=== PATIENT | male | born 1940 | race Caucasian/White ===

== ENCOUNTER 2025-02-21 11:31 | Emergency (ER) | payer MEDICARE, BC, SELFPAY ==
--- OUTSIDE RECORDS SUMMARY | 2024-11-09 03:50 | XMS_ITS | Continuity of Care Document ---
Author Organization [facility] Address [address] [place] [address] Phone Care Team Providers Care Mortar Worker Name Role Phone Salas Pedersen MD Unavailable Unavailable Allergies, Adverse Reactions, Alerts Substance Reaction Status Criticality No Known Allergies Active No Inform ation Medications Medication Instructions Dosage Effective Dates (start - stop) Status Comments loperamide 2 mg capsule take 2 capsule by oral route after 1st loose stool, followed by 1 capsule after each subsequent loose stool not to exceed 16 mg/day 4 MG - Active sertraline 50 mg tablet take 1 tablet by oral route every day 50 MG - Active pantoprazole 20 mg tablet,delayed release take 2 tablet by oral route every day 40 MG - Active allopurinol 100 mg tablet take 1 tablet by oral route every day 100 MG - Active Tylenol Extra Strength 500 mg tablet take 2 tablet by oral route every 6 hours as needed 1000 MG - Active finasteride 5 mg tablet take 1 tablet by oral route every day 5 MG - Active tamsulosin 0.4 mg capsule take 1 capsule by oral route every day 1/2 hour following the same meal each day 0.4 MG - Active aspirin 81 mg tablet,delayed release take 1 tablet by oral route every day 81 MG - Active losartan 100 mg tablet take 1 tablet by oral route every day 100 MG - Active FISH OIL (unknown strength) Not Available - Active Maxitrol 3.5 mg/mL-10,000 unit/mL-0.1% eye drops,suspension instill 1 drop by ophthalmic route 3 times a day into affected eye(s) x 7 days then stop - No Longer Active Procedures Procedure Date REFRACTION OFFICE/OUTPATIENT VISIT, EST REFRACTION OFFICE/OUTPATIENT VISIT, EST OFFICE/OUTPATIENT VISIT, EST OFFICE/OUTPATIENT VISIT, EST OFFICE/OUTPATIENT VISIT, EST REFRACTION REFRACTION OFFICE/OUTPATIENT VISIT, EST EYE EXAM MEDICAL ESTABLISHED PAT 2019 OFFICE/OUTPATIENT VISIT, EST EYE EXAM MEDICAL REFRACTION OFFICE/OUTPATIENT VISIT, EST OFFICE/OUTPATIENT VISIT, EST OFFICE/OUTPATIENT VISIT, EST OFFICE/OUTPATIENT VISIT, EST REFRACTION EYE EXAM MEDICAL OFFICE/OUTPATIENT VISIT, EST OPHTHALMOSCOPY SPECIAL EYE EXAM, SUBSEQU ENT EYE EXAM MEDICAL EYE EXAM & TREATMENT MEDICAL OFFICE/OUTPATIENT VISIT, EST POSTOP FOLLOW-UP VISIT REFRACTION POSTOP FOLLOW-UP VISIT CATARACT SURGERY, COMPLEX Astigmatism-correct function IOL MASTER PC OPHTHALMIC BIOMETRY POSTOP FOLLOW-UP VISIT POSTOP FOLLOW-UP VISIT CATARACT SURGERY, COMPLEX IOL MASTER PC OPHTHALMIC BIOMETRY EYE EXAM & TREATMENT MEDICAL E-Prescribe IOL MASTER TC OPHTHALMIC BIOMETRY Advance Directives Directive Yes / No Effective Date File Name Other Directive No N/A N/A WARNING:The information contained in this section is historical and is provided for information only and does not constitute a legal document or any assurance that the information is still accurate. Please verify the information with the espinal of the legal document before using it for clinical purposes. Encounters Encounter Description Practice Location Reason(s) For Visit Diagnoses Date Provider Providers Copied on Encounter OFFICE/OUTPA TIENT VISIT, EST [facility], [address], [place], [address], [place] tel:[phone] [facility] 1 year medical f/u exam (chief complaint) Opacified capsule, bilateralBlepharitis ,right upper lidBlepharitis, left upper lidDermatochalasis, right upper lidDermatochalasis, left upper lidVitreous degeneration, bilateralPseudophaki a bilateralStrabismic amblyopia, right eyePresbyopia 5 Slava Marina. [address], [place], [place], [id number] , [place]. tel: [phone] Referring Provider: Salas Gabriel, [address], [place], [address] . tel:[phone] OFFICE/OUTPA TIENT VISIT, [facility], [address], [place], [address], [place] tel: [phone] [facility] 1 year medical f/u exam (chief complaint) Opacified capsule, bilateralPseudophaki a bilateralStrabismic amblyopia, right eyeDermatochalasis, right upper lidDermatochalasis, left upper lidEsotropiaBlephari tis,right upper lidBlepharitis, left upper lidVitreous degeneration, bilateralPresbyopia 4 Slava Marina. [address], [place], [place], [id number] , [place]. tel: [phone] Referring Provider: Salas Gabriel, [address], [place], [address] . tel:[phone] OFFICE/OUTPA TIENT VISIT, [facility], [address], [place], [address], [place] tel: [phone] [facility] 1 year medical f/u exam (chief complaint) Opacified capsule, bilateralBlepharitis ,right upper lidBlepharitis, left upper lidDermatochalasis, right upper lidDermatochalasis, left upper lidStrabismic amblyopia, right eyePseudophakia bilateralEsotropia 3 Slava Marina. [address], [place], [place], [id number] , [place]. tel: [phone] Referring Provider: Salas Gabriel, [address], [place], [address] . tel:[phone] OFFICE/OUTPA TIENT VISIT, [facility], [address], [place], [address], [place] tel: [phone] [facility] Eval. of their symptoms (chief complaint) Blepharitis,right upper lidBlepharitis, left upper lid Jul- 3 Carol Hunter. [address], [place], [address], [place]. tel: [phone] Referring Provider: Dale Cordova, [address], [place], [address]. tel:[phone] OFFICE/OUTPA TIENT VISIT, [facility], [address], [place], [address], [place] tel: [phone] [facility] 1 year medical f/u exam (chief complaint) Opacified capsule, bilateralDermatochal asis, right upper lidDermatochalasis, left upper lidStrabismic amblyopia, right eyeEsotropiaVitreous degeneration, bilateralPseudophaki a bilateralMyopia, bilateral Aug- 2 Slava Marina. [address], [place], [place], [id number] , [place]. tel: [phone] Referring Provider: Salas Gabriel, [address], [place], [address] . tel:[phone] OFFICE/OUTPA TIENT VISIT, [facility], [address], [place], [address], [place] tel: [phone] [facility] 2 year medical f/u exam (chief complaint) Opacified capsule, bilateralBlepharitis ,right upper lidBlepharitis, left upper lidVitreous degeneration, bilateralDermatochal asis, right upper lidDermatochalasis, left upper lidStrabismic amblyopia, right eyePseudophakia bilateral Aug- 1 Slava Marina. [address], [place], [place], [id number] , [place]. tel: [phone] Referring Provider: Salas Gabriel, [address], [place], [address] . tel:[phone] [facility], [address], [place], [address], [place] tel: [phone] [facility] AO Evaluation (chief complaint) Blepharitis,right upper lidBlepharitis, left upper lid Mar-2 0 Dale Bennett. [address], [place], [place], [address] , [place]. tel: [phone] Referring Provider: Donald Nino, [address], [place], [address] . tel:[phone] OFFICE/OUTPA TIENT VISIT, EST [facility], [address], [place], [address], [place] tel: [phone] [facility] Medical ck of pseudophaki a,OU (chief complaint) Opacified capsule, bilateralBlepharitis ,right upper lidBlepharitis, left upper lidDermatochalasis, right upper lidDermatochalasis, left upper lidStrabismic amblyopia, right eyePseudophakia bilateralVitreous degeneration, bilateralOphthalmopl egic migraine, not intractable Sep-0 9 Slava Marina. [address], [place], [place], [id number] , [place]. tel: [phone] Referring Provider: Salas Gabriel, [address], [place], [address] . tel:[phone] [facility], [address], [place], [address], [place] tel: [phone] [facility] PP Medical Eye Exam (chief complaint) HeadacheOpacified capsule, bilateralVitreous degeneration, bilateralBlepharitis ,right upper lidBlepharitis, left upper lidDermatochalasis, right upper lidDermatochalasis, left upper lidPseudophakia bilateral Nov- 8 Pumaura Marina. [address], [place], [place], [id number] , [place]. tel: [phone] Referring Provider: Salas Gabriel, [address], [place], [address] . tel:[phone] OFFICE/OUTPA TIENT VISIT, [facility], [address], [place], [address], [place] tel: [phone] [facility] 1 year medical f/u exam (chief complaint) Opacified capsule, bilateralVitreous degeneration, bilateralEsotropiaSt rabismic amblyopia, right eyeDermatochalasis, right upper lidDermatochalasis, left upper lidBlepharitis,right upper lidBlepharitis, left upper lidPseudophakia bilateralMyopia, bilateral 7 Pumaura Marina. [address], [place], [place], [address] , [place]. tel: [phone] Referring Provider: Salas Gabriel, [address], [place], [address] . tel:[phone] OFFICE/OUTPA TIENT VISIT, [facility], [address], [place], [address], [place] tel: [phone] [facility] Eval. of their symptoms (chief complaint)B lurry vision (chief complaint) Ophthalmoplegic migraine, not intractableOpacified capsule, bilateralPseudophaki a bilateralStrabismic amblyopia, right eyeDermatochalasis, right upper lidDermatochalasis, left upper lidEsotropiaEpiphora , bilateral 6 Pumaura Marina. [address], [place], [place], [address] , [place]. tel: [phone] Referring Provider: Salas Gabriel, [address], [place], [address] . tel:[phone] OFFICE/OUTPA TIENT VISIT, EST [facility], [address], [place], [address], [place] tel: [phone] [facility] 1 year medical f/u exam (chief complaint) Opacified capsule, bilateralPseudophaki a bilateralDermatochal asis, right upper lidDermatochalasis, left upper lidEpiphora, bilateralBlepharitis ,right upper lidBlepharitis, left upper lid Oct-0 6-201 5 Puk Salas. [address], [place], [place], [id number] , [place]. tel: [phone] Referring Provider: Salas Gabriel, [address], [place], [address] . tel:[phone] OFFICE/OUTPA TIENT VISIT, [facility], [address], [place], [address], [place] tel: [phone] [facility] Medical follow-up exam (chief complaint) Epiphora due to insufficient drainageBlepharitis, unspecifiedMyopia Oct-0 8-201 4 Puk Salas. [address], [place], [place], [id number] , [place]. tel: [phone] Referring Provider: Salas Gabriel, [address], [place], [address] . tel:[phone] [facility], [address], [place], [address], [place] tel: [phone] [facility] 1 year medical f/u exam (chief complaint)D ifficulty reading (chief complaint)E xcessive tearing (chief complaint) After-cataract, obscuring visionLens replaced by other meansStrabismic amblyopiaDermatochal asisEsotropia, unspecifiedBlepharit is, unspecifiedEpiphora due to insufficient drainage Sep-2 4-201 4 Puk Salas. [address], [place], [place], [address] , [place]. tel: [phone] Referring Provider: Salas Gabriel, [address], [place], [address] . tel:[phone] OFFICE/OUTPA TIENT VISIT, EST [facility], [address], [place], [address], [place] tel: [phone] [facility] Vitreous degenerationVitreous degeneration Apr-2 3 4 Slava Marina. [address], [place], [place], [id number] , [place]. tel: [phone] Referring Provider: Salas Gabriel, [address], [place], [address] . tel:[phone] [facility], [address], [place], [address], [place] tel: [phone] [facility] Opacified CapsulePseudophakiaD ERMATOCHALASISESOTRO AMANDEEP NOS Dec- 3 Slava Marina. [address], [place], [place], [id number] , [place]. tel: [phone] Referring Provider: Salas Gabriel, [address], [place], [address] . tel:[phone] [facility], [address], [place], [address], [place] tel: [phone] [facility] Opacified CapsulePseudophakiaS TRABISMIC AMBLYOPIABLEPHARITIS NOS Dec- 2 Slava Marina. [address], [place], [place], [address] , [place]. tel: [phone] Referring Provider: Salas Gabriel, [address], [place], [address] . tel:[phone] OFFICE/OUTPA TIENT VISIT, EST [facility], [address], [place], [address], [place] tel: [phone] [facility] PseudophakiaPseudoph akiaREGULAR ASTIGMATISMMYOPIASTR ABISMIC AMBLYOPIADERMATOCHAL ASISDERMATOCHALASISE SOTROPIA NOSOpacified CapsulePseudophakiaD ERMATOCHALASISESOTRO AMANDEEP NOSPseudophakiaESOTR OPIA NOSBLEPHARITIS NOS 1 Slava Marina. [address], [place], [place], [id number] , [place]. tel: [phone] Referring Provider: Salas Gabriel, [address], [place], [address] . tel:[phone] [facility], [address], [place], [address], [place] tel: [phone] [facility] No Information 1 Slava Marina. [address], [place], [place], [address] , [place]. tel: [phone] Referring Provider: Salas Gabriel, [address], [place], [address] . tel:[phone] [facility], [address], [place], [address], [place] tel: [phone] [facility] No Information 1 Slava Marina. [address], [place], [place], [address] , [place]. tel: [phone] Referring Provider: Salas Gabriel, [address], [place], [address] . tel:[phone] [facility], [address], [place], [address], [place] tel: [phone] [facility] No Information 1 Slava Marina. [address], [place], [place], [address] , [place]. tel: [phone] Referring Provider: Salas Gabriel, [address], [place], [address] . tel:[phone] [facility], [address], [place], [address], [place] tel: [phone] [facility] No Information 1 Slava Marina. [address], [place], [place], [address] , [place]. tel: [phone] Referring Provider: Salas Gabriel, [address], [place], [address] . tel:[phone] [facility], [address], [place], [address], [place] tel: [phone] [facility] No Information 1 Slava Marina. [address], [place], [place], [address] , [place]. tel: [phone] Referring Provider: Salas Gabriel, [address], [place], [address] . tel:[phone] [facility], [address], [place], [address], [place] tel: [phone] [facility] No Information 0 1 Slava Marina. [address], [place], [place], [address] , [place]. tel: [phone] Referring Provider: Salas Gabriel, [address], [place], [address] . tel:[phone] [facility], [address], [place], [address], [place] tel: [phone] [facility] No Information 0 1 Slava Marina. [address], [place], [place], [address] , [place]. tel: [phone] Referring Provider: Salas Gabriel, [address], [place], [address] . tel:[phone] [facility], [address], [place], [address], [place] tel: [phone] [facility] No Information Jun-3 - 1 Slava Marina. [address], [place], [place], [address] , [place]. tel: [phone] [facility], [address], [place], [address], [place] tel: [phone] [facility] No Information 1 Slava Marina. [address], [place], [place], [address] , [place]. tel: [phone] Referring Provider: Salas Gabriel, [address], [place], [address] . tel:[phone] Family History Family Member Type Diagnosis Age At Onset Father Problem No history of Macular degene ration Payers Payer name Insurance type Covered libertarian ID Authorclementea vandana(s) Medicare MB [id number] [facility] [id number] Social History Type Description Quantity Date Captured Comments Alcohol Use Details Unknown Caffeine Use Details Tobacco Use Status Current non-smoker Smoking Status Never smoker Non-Smoking Tobacco Use Details : No Details Available : No Details Available Sex Male Chief Complaint And Reason For Visit From encounter dated '11/09/2024 08:50'. 1 year medical f/u exam (chief complaint). Description: The 84 year old male presents for evaluation of 1 year medical f/u exam. Pt requests cont care for PCIOL OU, PCO OU, strabismic amblyopia OD and presbyopia. Pt c/o blurry Va OU x 1 months - pt reports corners of eyes get matted and crusty as well. Reason For Referral Reason For Referral No Information History Of Present Illness Encounter Date Complaint History Of Prese nt Illness 1 year medical f/u exam The 84 y ear old male presents for evaluation of 1 year medical f/u exam. Pt requests cont care for PCIOL OU, PCO OU, strabismic amblyopia OD and presbyopia. Pt c/o blurry Va OU x 1 months - pt reports corners of eyes get matted and crusty as well. 1 year medical f/u exam The 83 y ear old male presents for evaluation of 1 year medical f/u exam. 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 Pt requests continued care for PCIOL OU w/PCO OU, Vit Deg OU, strabismic amblyopia OD, Esotropia OD, DTC, PVD OU, Myopia and presbyopia. Pt saw Dr. Medina in July for Blepharitis. Pt says things aren't good today. He verbalizes that he thinks he has an infection, and then he says he's been having troubles with both NVA/DVA for a while. Pt says that OU have been watering and mattering in the corners of OU. He said after he saw Dr. Medina things got better but then the last couple months they've been like this. Eval. of their symptoms The 82 y ear old male presents for evaluation of Eval. of their symptoms. Pt states that he has a lot of tearing and soreness, mattery OS>OD, no FBS, no swelling of lids, no redness, itchy, no pain, started about a month ago. Pt states both near and distance va has been mildly transiently blurry OU for the past month. Pt has tried hot compress, it does help, but is not consistent. PT has hx of DTC, blepharitis, and PCIOL. Pt usually sees Dr Pedersen, STACIE 11/26/2021. 1 year medical f/u exam The 81 y ear old male presents for evaluation of 1 year medical f/u exam. Pt requests cont care for PCIOL OU, PCO OU, strabismic amblyopia OD, PVD OU and presbyopia. Mild decrease in Va OU x years, tamie near. 2 year medical f/u exam The 80 y ear old male presents for evaluation of 2 year medical f/u exam. Last seen as an add on for Blepharitis OU 07/19/19 (Dr Hunter). Last DFE 12/28/18 (Dr Pedersen). Patient request continued care for PCIOL OU, PCO OU, Strabismic amblyopia OD, Esotropia OU and presbyopia OU. Near VA has gradually gotten mildly blurry with glasses in the 1 year. Notices puzzles in the news paper are getting fuzzy and he needs more light to read the paper. Distance VA has been clear OU with glasses for the past year. Denies covid 29 symptoms. AO Evaluation The 79 year old male presents for evaluation of AO Evaluation, Dawit Hollingsworth MD for irritated OUPt went to [facility] 06/29/19 for irritation OU, eyes feel tight and tender in the corners. Was told to use Maxitrol drops BID x 5 days. Thought they were working well. Pt stopped gtts about 07/05/19 and was told to try Patanol but [facility] told him it was an Rx, they gave him an OTC gtts in the same family. Pt states was told to come here if continued. Pt feels they are still irritated. Medical ck of pseudophakia,OU Th e 78 year old male presents for evaluation of Medical ck of pseudophakia ,OU; PCO, OU; vitreous degeneration, OU; blepharitis and dermatochalasia. Pt c/o mild gradual decrease in NVA OU over the last 6 months. PP Medical Eye Exam This 77 year old male presents today for PP Medical Eye Exam for continued eye care for PCIOL:OU with PCO:OU, DTC:OU, Strabismus Amblyopia, ESO:OD, Blepharitis:OU - Wearing glasses full time paramedic. Does C/O blurry vision in both eyes for distance and near over the past year, states that he struggles reading small, fine print and focusing at images in the distance. Mentions today that he has had a constant headache for the past 10 days that is causing him to have eye strain and pressure behind both eyes. He had a Cervical Neck Fusion [place] [address] Bertrand. He's C/O left sided shoulder and neck pain that radiates to the top of his head. He does have a pending appt with Dr. White the end of November. 1 year medical f/u exam This 76 year old male presents today for a 1 year medical follow-up exam. Pt request continued care on PCIOL OU WITH PCO OU, DTC OU, STRABISMUS AMBLYOPIA /ESO OD, BLEPHARITIS OUPt aware of more struggle with reading finer print with OU, gradually getting worse over the past several years, get's new glasses, and finds no real improvement. Pt does well with dist vision OU. Rare floaters in Ou , mild on occasion. No flashing lights noted in OUBoth eyes continue to tear , using AT's RARE. Eval. of their symptoms This 75 year old male presents today for Eval. of their symptoms. Add on from last week for complete eye examination for continuing care of PC IOL's / Amblyopia OD / Epiphora OU and Presbyopia / increase in tearing OU >OS / tears down cheek / tears irritate skin around eye tamie temp side OS / sx's progressively getting worse the past few months / noticing a visual disturbance - occurs probable 3 x monthly - last approx 20 mis - its like looking thru beveled glass - starts peripherally than moves center than goes away - denies headache prior or after such episodes.decrease OS / grad on set / mod in severity / affects near va / occurs with gls on __ Blurry vision The patient also complains of Blurry vision in the OS more than OD. It started about many year(s) ago. It occurs frequently. The onset was progressive. It affects near vision. The symptom is throughout the day. The condition is moderate. The condition is described as blurry. 1 year medical f/u exam This 74 year old male presents today for a 1 year medical follow-up exam. PCIOL OU / Epiphora / Blepharitis OU. Pt c/o gradual moderate dist va decrease OS > OD for past 6 mos, has trouble seeing the score of the game on tv. Also, near va difficult ou, same for past few mos. Medical follow-up exam This 73 y ear old male presents today for a medical follow-up exam. Pt returns for 2 week check after being put on tx in both eyes for epiphora and blepharitis pt feel he has had some improvement. 1 year medical f/u exam This 73 year old male presents today for a 1 year medical follow-up exam. The patient also complains of Difficulty reading in both eyes. It started about 6 month(s) ago. It affects near vision. The condition is moderate. Difficulty reading The patient a lso complains of Difficulty reading in both eyes. It started about 6 month(s) ago. It affects near vision. The condition is moderate. Excessive tearing The patient al so complains of Excessive tearing in the OS more than OD. It started about 1 week(s) ago. It occurs constantly. The symptom is throughout the day. The condition is very bothersome. Functional Status Date Functional Assessmen t No Information Instructions Date Instruction Additional Infor mation No tx needed. 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 Instructions and use reviewed. Related to Presbyopia Defer treatment of c apsular opacification for now. Observe. 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 Reviewed techniques and instructions in detail. Discussed use of lubrication drops also.Generic Maxitrol TID OU for 1 week.Switch to Ketifen (Zaditor) Related to Blepharitis,right upper lid Continue full time paramedic g lasses for hyperopia. Discussed with parents that there is mild residual esotropia while in appropriate corrective lenses. Residual ET is small and is at or near monofixation range. Discussed options for treatment including aggressive pursuit of fusion with surgery. Parents defer surgery. Monitor closely for amblyopia and treat with patching if indicated. Discussed risks and importance of follow-up. Related to Strabismic amblyopia, right eye Glasses prescription given today. Instructions and use reviewed. Related to Presbyopia Monitor. 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 Observe. Related to Opacified capsule, bilateral Continue full time paramedic g lasses for hyperopia. Discussed with parents that there is mild residual esotropia while in appropriate corrective lenses. Residual ET is small and is at or near monofixation range. Discussed options for treatment including aggressive pursuit of fusion with surgery. Parents defer surgery. Monitor closely for amblyopia and treat with patching if indicated. Discussed risks and importance of follow-up. 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 Discussed with parents that there is mild residual esotropia while in appropriate corrective lenses. Residual ET is small and is at or near monofixation range. Discussed options for treatment including aggressive pursuit of fusion with surgery. Parents defer surgery. Monitor closely for amblyopia and treat with patching if indicated. Discussed risks and importance of follow-up. 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 Reviewed techniques and instructions in detail. Discussed use of lubrication drops also. Related to Blepharitis,right upper lid No tx needed. 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 Residual ET is small and is at or near monofixation range. Related to Esotropia No tx needed. 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 Reviewed techniques and instructions in detail. Discussed use of lubrication drops also.Generic Maxitrol TId for 10 days. Related to Blepharitis,right upper lid Defer treatment of c apsular opacification for now. Observe. 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 Instructions carefully reviewed and risks of meds discussed. Begin lid hygiene regimen. Reviewed techniques and instructions. Discussed use of lubrication drops also.maxitrol QID for 7 days Related to Blepharitis, left upper lid Glasses prescription given today. Instructions and use reviewed. 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 Observe. 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 Discussed with parents that there is mild residual esotropia while in appropriate corrective lenses. Residual ET is small and is at or near monofixation range. Discussed options for treatment including aggressive pursuit of fusion with surgery. Parents defer surgery. Monitor closely for amblyopia and treat with patching if indicated. Discussed risks and importance of follow-up. Related to Esotropia part time glasses fo r any substantial hyperopia. Monitor closely for amblyopia. Reviewed natural history. Discussed risks and importance of follow-up. 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 Emphasized decision for treatment is patient's own choice and NOT something they must do. Described procedure. Discussed procedure associated risks ranging from those which are resolvable with additional treatments or surgery, to those which have serious and permanent consequences such as decreased vision, blindness or even loss of eye. Discussed post-laser symptoms to be concerned about including flashes and floaters, redness, pain or decreasing vision. Patient seems to understand these discussions and feels that their symptoms are severe enough that they wish to proceed with a YAG capsulotomy. 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 Reviewed techniques and instructions in detail. Discussed use of lubrication drops also. Related to Blepharitis,right upper lid Reviewed symptoms of RD Related to Vitreous degeneration, bilateral No tx needed. 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 Discussed with parents that there is mild residual esotropia while in appropriate corrective lenses. Residual ET is small and is at or near monofixation range. Discussed options for treatment including aggressive pursuit of fusion with surgery. Parents defer surgery. Monitor closely for amblyopia and treat with patching if indicated. Discussed risks and importance of follow-up. 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 Reviewed techniques and instructions in detail. Discussed use of lubrication drops also.Use PF QID for 2 weeks Related to Blepharitis,right upper lid Continue to monitor. 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 Discussed with parents that there is mild residual esotropia while in appropriate corrective lenses. Residual ET is small and is at or near monofixation range. Discussed options for treatment including aggressive pursuit of fusion with surgery. Parents defer surgery. Monitor closely for amblyopia and treat with patching if indicated. Discussed risks and importance of follow-up. 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 Reviewed techniques and instructions in detail. Discussed use of lubrication drops also. Related to Blepharitis,right upper lid Defer treatment of c apsular opacification for now. Observe. 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 Reviewed techniques and instructions in detail. Discussed use of lubrication drops also. Related to Blepharitis,right upper lid No tx needed. 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 Christopher FAIRBANKS. Related to Headache Defer treatment of c apsular opacification for now. Observe. 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 Instructions and use reviewed. 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 Discussed with parents that there is mild residual esotropia while in appropriate corrective lenses. Residual ET is small and is at or near monofixation range. Discussed options for treatment including aggressive pursuit of fusion with surgery. Parents defer surgery. Monitor closely for amblyopia and treat with patching if indicated. Discussed risks and importance of follow-up. 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 Discussed with parents that there is mild residual esotropia while in appropriate corrective lenses. Residual ET is small and is at or near monofixation range. Discussed options for treatment including aggressive pursuit of fusion with surgery. Parents defer surgery. Monitor closely for amblyopia and treat with patching if indicated. Discussed risks and importance of follow-up. 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 Reviewed techniques and instructions in detail. Discussed use of lubrication drops also. Related to Blepharitis,right upper lid Monitor. 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 Discussed symptoms and elective nature of surgery. Patient will begin vision monitoring for advancing symptoms. Observe for now. 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 Discussed with parents that there is mild residual esotropia while in appropriate corrective lenses. Residual ET is small and is at or near monofixation range. Discussed options for treatment including aggressive pursuit of fusion with surgery. Parents defer surgery. Monitor closely for amblyopia and treat with patching if indicated. Discussed risks and importance of follow-up. Related to Esotropia Call regular M.D. if symptoms wo rsen. 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 Discussed symptoms and elective nature of surgery. Patient will begin vision monitoring for advancing symptoms. Observe for now. 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 Discussed with parents that there is mild residual esotropia while in appropriate corrective lenses. Residual ET is small and is at or near monofixation range. Discussed options for treatment including aggressive pursuit of fusion with surgery. Parents defer surgery. Monitor closely for amblyopia and treat with patching if indicated. Discussed risks and importance of follow-up. 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 Samantha cordova for evaluation. Would lower lid tightening help pt? Pt. will call if he decides to do this. 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 Relat ed to Dermatochalasis, right upper lid Begin lid hygiene re gimen. Reviewed techniques and instructions in detail. Discussed use of lubrication drops also. Related to Blepharitis,right upper lid Discussed the natura l history and treatment of cataracts. Discussed symptoms and elective nature of surgery. Patient will begin vision monitoring for advancing symptoms. Observe for now. 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 Reviewed techniques and instructions in detail. Discussed use of lubrication drops also. Related to Blepharitis, unspecified Glasses prescription given today. Instructions and use reviewed. Related to Myopia Pred. Acetate BID OU for 4 days, then qd for 4 days.Lid hygiene BID. Related to Epiphora due to insufficient drainage Patient education given 1) Tobradex TID for 1 week OU. 2) May need referral to plastic person. 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 Discussed with parents that there is mild residual esotropia while in appropriate corrective lenses. Residual ET small and is at or near monofixation range. Discussed options for treatment including aggressive pursuit of fusion with surgery. Parents defer surgery. Moniter closely for amblyopia and treat with patching if indicated. Discussed risks and importance of follow-up. Related to Strabismic amblyopia No tx needed. 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 Discussed with parents that there is mild residual esotropia while in appropriate corrective lenses. Residual ET small and is at or near monofixation range. Discussed options for treatment including aggressive pursuit of fusion with surgery. Parents defer surgery. Moniter closely for amblyopia and treat with patching if indicated. Discussed risks and importance of follow-up. Related to Esotropia, unspecified Begin lid hygiene re gimen. Reviewed techniques and instructions in detail. Discussed use of lubrication drops also. Related to Blepharitis, unspecified Discussed the natura l history and treatment of cataracts. Discussed symptoms and elective nature of surgery. Patient will begin vision monitoring for advancing symptoms. Observe for now. Related to After-cataract, obscuring vision Monitor. Related to Lens replaced by other means Posterior Vitreous D etachment OD -large floater. - Posterior vitreous separation. Second check. Still no heme. No retinal tears. No RD. - PVD. No associated retinal tears. No Viitreous Heme. No RD. Explained the natural history of backer up vitreous detachment as well as that of retinal tears and retinal detachment. Discussed their associated symptoms in detail. Reviewed what to expect and which symptoms to be concerned about. Discussed importance of prompt evaluation if symptoms worsen or change in character. Stressed the potentially serious nature of RD. Observe for now. Begin home monitoring for symptoms. Educational materials provided: Related to Posterior Vitreous Detachment - Follow up as needed. OPACIFIED CAPSULE OU - pc iol od07/28/10 and os toric 08/11/10 - - Mildly worse. Symptoms related to posterior capsular opacification slowly progressing. Impact on ADL's not sufficient to warrent capsulotomy presently. - No treatment indicated presently. Related to pc iol od07/28/10 and os toric 08/11/10 DERMATOCHALASIS - - Mild/Mod excess upper eyelid skin. Mild symptoms such as brow fatigue, irritation and/or restriction of upper visual field. - No treatment indicated presently. Related to DERMATOCHALASIS ESOTROPIA NOS OD - S tatus: NO signs of Progression. - No changes to current treatment. Related to ESOTROPIA NOS OPACIFIED CAPSULE OU - - Mildly worse. Symptoms related to posterior capsular opacification slowly progressing. Impact on ADL's not sufficient to warrent capsulotomy presently. - Discussed natural history and treatment of cataracts. Discussed symptoms and elective nature of surgery. Patient will begin vision monitoring for advancing symptoms. Observe for now. Educational materials provided: Related to OPACIFIED CAPSULE - Return in 1 year f or a medical exam. Related to pc iol od07/28/10 and os toric 08/11/10 pc iol od07/28/10 and os toric 08/11/10 - - Hx of cataract surgery. Well positioned PCIOL. - Discussed natural history and treatment of cataracts. Discussed symptoms and elective nature of surgery. Patient will begin vision monitoring for advancing symptoms. Observe for now. Related to pc iol od07/28/10 and os toric 08/11/10 STRABISMIC AMBLYOPIA OD -stable - No changes to current treatment. Related to STRABISMIC AMBLYOPIA BLEPHARITIS OU - - M ild/Mod blepharitis with meibomian gland dysfunction. Some Irritative symptoms. - Begin lid hygiene regimen. Reviewed techniques and instructions in detail. Discussed use of lubrication drops also. Related to BLEPHARITIS OPACIFIED CAPSULE OU Vision: vision affected. Symptoms: may improve with surgery. Status: Mild, new diagnosis. - May need Yag PC OS in future. Related to OPACIFIED CAPSULE pc iol od07/28/10 and os toric 08/11/10 Vision: vision not affected. Symptoms: will continue to monitor. Status: Stable. - Continue to monitor. Related to pc iol od07/28/10 and os toric 08/11/10 DERMATOCHALASIS Visi on: vision not threatened. Symptoms: will continue to monitor. Status: Moderate. - Continue to monitor. Related to DERMATOCHALASIS ESOTROPIA NOS OD Vis ion: vision not affected. Status: NO signs of Progression. - No changes to current treatment. Related to ESOTROPIA NOS BLEPHARITIS OU Visio n: vision affected. Status: Moderate. - Blepharitis. Begin lid hygiene regimen. Reviewed techniques and instructions in detail. Discussed use of lubrication drops also. Related to BLEPHARITIS - Return in 1 year w ivy Pedersen for Medical Exam. Related to See impression: general plan Assessments Type Assessment Date assessment Opacified capsule, bilateral Oct assessment Blepharitis,right upper lid assessment Blepharitis, left upper lid assessment Dermatochalasis, right upper lid assessment Dermatochalasis, left upper lid assessment Vitreous degeneration, bilateral assessment Pseudophakia bilateral impression pciol ou 2010 Histor y of cataract surgery. Well positioned PCIOL. assessment Strabismic amblyopia, right eye assessment Presbyopia impression Mildly worse. Sympto ms related to posterior capsular opacification slowly progressing. Impact on ADL's not sufficient to warrant capsulotomy presently. impression - Difference in bandar ured acuity or fixation preference between eyes due to strabismus, anisometropia or opacity. impression Posterior vitreous s eparation. No heme. No retinal tears. No RD. impression Mild/Mod blepharitis with meibomian gland dysfunction. Some Irritative symptoms. impression Mild/Mod excess uppe r eyelid skin. Mild symptoms such as brow fatigue, irritation and/or restriction of upper visual field. Patient Care Teams Name Effective Dates (start - stop) Status Members No Information
[2025-02-21 11:34] VITALS: BP 150/85; PULSE 60; RESP 20; TEMP 36.3; O2SAT 96; BMI 30.5
--- NOTE | 2025-02-21 11:56 | ED.GENADULT ---
HPI - General Adult General Date Seen: 02/21/25 Chief complaint: Cough Stated complaint: Cough Time Seen by Provider: 02/21/25 11:40 Source: patient Mode of arrival: ambulatory Limitations: no limitations History of Present Illness HPI narrative: Patient is an 84-year-old male presenting to the emergency department for cough and shortness of breath. States they recently returned from a trip to [facility]. Nine days ago they were on a boat tour and they state a lot of people on the tour seemed to be sick.. After that patient also began having symptoms and has been coughing up clear mucus since then. He went to a doctor and [place] and was prescribed amoxicillin and Ventolin for bronchitis. Symptoms have not been getting any better since they returned home. He has been unable to sleep due to the coughing. Also states he has been having increased shortness of breath ever since he 1st got sick. States previously he would walk around to visit the [facility] in [facility] but after he got sick he would stay back. No history of blood clots. Has not noticed any lower extremity swelling. Denies fevers, chills, chest pain, headache, diarrhea. States he has some left lower quadrant abdominal pain but it is only there when he coughs. Pain is not there when he is not coughing and is not tender to palpation he states. Does states he feels little bit lightheaded this morning with states he took NyQuil last night and he typically feels slightly lightheaded the next day after taking it. No other concerns noted Related Data Home Medications ?Medication ?Instructions ?Recorded ?Confirmed aspirin 81 mg chewable tablet 81 mg PO QDAY 07/07/24 11/24/24 atorvastatin 20 mg tablet mg PO 07/07/24 11/24/24 azithromycin 250 mg tablet mg PO 07/07/24 07/07/24 cholecalciferol (vitamin D3) 10 10 mcg PO QDAY 07/07/24 11/24/24 mcg (400 unit) capsule clobetasol 0.05 % topical cream 1 applic topical QDAY 07/07/24 11/24/24 doxycycline hyclate 100 mg capsule 100 mg PO BID 07/07/24 07/07/24 finasteride 5 mg tablet mg PO 07/07/24 07/07/24 gabapentin 300 mg capsule mg PO 07/07/24 11/24/24 loperamide 2 mg capsule 2 mg PO Q6H PRN 07/07/24 07/07/24 metoprolol tartrate 25 mg tablet 25 mg PO DAILY 07/07/24 02/21/25 metronidazole 500 mg tablet mg PO 07/07/24 07/07/24 omega 7-acd-iez-fish oil 60 mg-90 1 cap PO QDAY 07/07/24 11/24/24 mg-500 mg capsule (Fish Oil) pantoprazole 40 mg tablet,delayed 40 mg PO DAILY 07/07/24 02/21/25 release sertraline 100 mg tablet 100 mg PO DAILY 07/07/24 02/21/25 tamsulosin 0.4 mg capsule mg PO 07/07/24 11/24/24 valacyclovir 1 gram tablet 1,000 mg PO 3XD 07/07/24 07/07/24 Previous Rx's ?Medication ?Instructions ?Recorded dextromethorphan-guaifenesin 5 15 ml PO Q4-8H PRN cough #500 mL 02/21/25 mg-100 mg/5 mL oral liquid Allergies Allergy/AdvReac Type Severity Reaction Status Date / Time No Known Drug Allergies Allergy Verified 11/24/24 08:47 Review of Systems Status of ROS: Reports: 10 or more systems reviewed and unremarkable except as noted in History and below Exam Narrative: Exam Narrative: Const: Well-nourished, Well-developed, in mild distress Eyes: PERRL, no conjunctival injection, and symmetrical lids HENT: Atraumatic external nose and ears. Moist mucous membranes. Neck: Symmetric, trachea midline, No thyromegaly. CVS: RRR, No murmurs or gallops. Peripheral pulses 2+ and equal in all extremities RESP: Unlabored respiratory effort. Clear to auscultation bilaterally. GI: Nontender/Nondistended, No rebound or guarding. MSK:Extremities w/o deformity, Normal Active ROM Skin: Warm, Dry. No rashes or lesions. Neuro: Normal Muscle tone, No focal neurological deficits. Psych: Awake, Alert, & Oriented x3. Appropriate mood and affect. Const: Vital Signs, click to edit/add: Vital Signs - 24 hr 02/21/25 11:34 Temperature 97.4 F L Pulse Rate [Pulse Oximeter] 60 Respiratory Rate 20 Blood Pressure [Ri ght Upper Arm] 150/85 H Pulse Oximetry 96 Oxygen Delivery Me thod Room Air Course Vital Signs Vital signs: Initial Vital Signs Temperature 97.4 F L 02/21/25 11:34 Temperature Source Temporal Artery Scan 02/21/25 11:34 Pulse Rate 60 02/21/25 11:34 Respiratory Rate 20 02/21/25 11:34 Blood Pressure 150/85 H 02/21/25 11:34 Blood Pressure Mean 106 H 02/21/25 11:34 Blood Pressure Position Sitting 02/21/25 11:34 Pulse Oximetry 96 02/21/25 11:34 Oxygen Delivery Method Room Air 02/21/25 11:34 Vital Signs Temperature 97.4 F L 02/21/25 11:34 Pulse Rate 60 02/21/25 11:34 Respiratory Rate 20 02/21/25 11:34 Blood Pressure 150/85 H 02/21/25 11:34 Pulse Oximetry 96 02/21/25 11:34 Oxygen Delivery Method Room Air 02/21/25 11:34 Temperature 97.4 F L 02/21/25 11:34 Pulse Rate 60 02/21/25 11:34 Respiratory Rate 20 02/21/25 11:34 Blood Pressure 150/85 H 02/21/25 11:34 Pulse Oximetry 96 02/21/25 11:34 Oxygen Delivery Method Room Air 02/21/25 11:34 Medical Decision Making MDM Narrative Medical decision making narrative: Patient is an 84-year-old male presenting to the emergency department for a cough and shortness of breath. Cough fever will be bronchitis. The differential diagnosis of shortness of breath is broad and includes common etiologies such as COPD, asthma, pneumonia, viral syndrome, etc. More serious etiologies considered include PE, CHF, coronary artery disease, pneumothorax, aortic dissection, aortic aneurysm. Since he did have piece long flight to [facility] there is some concern he could have developed a blood clot or developed 1 from his viral infection. Either way I do think it is important to rule out in order a D-dimer. EKG and troponin order to the cardiac abnormalities causing his cough and shortness of breath. Will eventually do a CT scan to look for pneumonia or pneumothorax. Also ordered CBC, CMP, magnesium. Patient's lab work returned showing no acute concerning abnormalities. EKG interpreted by myself shows no concerning abnormalities. CT scan was ordered in reviewed by myself and the radiologist. Shows some postsurgical changes and a 4.5 cm aortic aneurysm. The patient is aware of both of these. No clear signs of pneumonia. He is doing well overall and will be discharged. Lab Data Labs: Lab Results 02/21/25 02/21/25 Range/Units 11:55 12:09 WBC 5.72 (4.50-11.00) K/uL RBC 4.22 L (4.30-5.90) m/uL Hgb 13.3 L (13.5-17.5) gm/dL Hct 39.8 (37.0-53.0) % MCV 94 (80-100) fL MCH 32 (26-34) pg MCHC 33 (32-36) gm/dL RDW Coeff of Melanie 14.3 (11.5-15.5) % Plt Count 118 L (140-440) K/uL Neut % (Auto) 75.1 H (42.0-72.0) % Lymph % (Auto) 11.0 L (20-44) % Richardson % (Auto) 7.3 (0.0-11.0) % Eos % (Auto) 4.4 (0.0-7.0) % Baso % (Auto) 0.3 (0.0-3.0) % Neut # (Auto) 4.30 (1.7-7.0) K/uL Lymph # (Auto) 0.60 L (0.90-2.90) K/uL Richardson # (Auto) 0.40 (0.00-0.90) K/UL Eos # (Auto) 0.25 (0.00-0.50) K/uL Baso # (Auto) 0.02 (0.00-0.30) K/uL Abs Immat Gran (auto) 0.11 (0.00-0.30) K/uL Imm/Tot Granulo (auto) 1.9 % D-Dimer Quant (PE/DVT) 0.35 (0.00-0.50) ug/ml Sodium 140 (135-149) mmol/L Potassium 4.3 (3.6-5.1) mmol/L Chloride 106 (96-114) mmol/L Carbon Dioxide 29 (20-32) mmol/L Anion Gap 5 L (7-15) mEq/L BUN 13 (7-30) mg/dL Creatinine 1.1 (0.5-1.5) mg/dL Estimated Creat Clear 55.14 Estimated GFR 67 ml/min Glucose 98 (60-115) mg/dL Calcium 8.6 (8.4-10.6) mg/dL Magnesium 1.8 (1.5-2.6) mg/dL Troponin I < 0.01 (0.01-0.04) ng/mL SARS-CoV-2 (PCR) Negative SARS-CoV-2 (Negative) Influenza Type A (PCR) Negative PCR FLU A (Negative) Influenza Type B (PCR) Negative PCR FLU B (Negative) RSV (PCR) Negative PCR RSV (Negative) Imaging Data CT scan - chest: Attestation: I have reviewed the pertinent imaging results. Radiologist's impression: 1. There are some reticular opacities and distortion that are primarily in the anterior/anterolateral periphery of right upper lobe and right middle lobe. There is some overlying irregularity and distortion in the chest wall. Favor that this is related to a prior surgical insult or trauma. 2. There are trace bilateral pleural effusions of unclear etiology. 3. There has an ascending aortic aneurysm that measures up to 4.5 cm. Please note that all CT scans at this facility use dose modulation, iterative reconstruction, and/or weight-based dosing when appropriate to reduce radiation dose to as low as reasonably achievable. Dictated by Ce Lambert MD @ 02/21/2025 1:39:40 PM ECG Data Attestation: I personally reviewed and interpreted this ECG as follows: Prior ECG tracings: not available for review Interpretation: Sinus bradycardia with the rate 55 beats per minute, normal intervals, left axis, no ST or T-wave abnormalities. Discharge Plan Discharge Clinical Impression: Cough, Bronchitis Patient Disposition: Home, Self-Care Condition: Stable Instructions: Acute Bronchitis (ED) Additional Instructions: Take the Robitussin as directed to help with your cough. This cough may take several months to fully go way. Finish the antibiotics prescribed in [place]. Recommend following up with the primary care provider. Also of note your aortic aneurysm is 4.5 cm and continue to have that monitored. Prescriptions: New dextromethorphan-guaifenesin 5-100 mg/5 mL liquid 15 ml PO Q4-8H PRN (Reason: cough) Qty: 500 0RF No Action doxycycline hyclate 100 mg capsule 100 mg PO BID valacyclovir 1 gram tablet 1,000 mg PO 3XD finasteride 5 mg tablet PO Patient Comments: [NO ORIGINAL SIG] gabapentin 300 mg capsule PO Patient Comments: [NO ORIGINAL SIG] pantoprazole 40 mg tablet,delayed release (DR/EC) 40 mg PO DAILY tamsulosin 0.4 mg capsule PO metoprolol tartrate 25 mg tablet 25 mg PO DAILY atorvastatin 20 mg tablet PO Patient Comments: [NO ORIGINAL SIG] metronidazole 500 mg tablet PO Patient Comments: [NO ORIGINAL SIG] azithromycin 250 mg tablet PO sertraline 100 mg tablet 100 mg PO DAILY loperamide 2 mg capsule 2 mg PO Q6H PRN clobetasol 0.05 % cream 1 applic topical QDAY cholecalciferol (vitamin D3) 10 mcg (400 unit) capsule 10 mcg PO QDAY omega 0-nnr-xfy-fish oil [Fish Oil] 60-90-500 mg capsule 1 cap PO QDAY aspirin 81 mg tablet,chewable 81 mg PO QDAY Follow Up/Referrals: Provider,Not a Local [Primary Care Provider, Family Practice] [facility]
--- OUTSIDE RECORDS SUMMARY | 2025-02-21 12:04 | XMS_ITS | Encounter Summary ---
Author Organization [facility] Care Address [address] [place] [address] Phone Care Team Providers Care [employer] Civil Engineer Name Role Phone Sebastien Moreland Primary Care Provider [phone] Mariela Kim Unavailable [phone] Reason for Visit * Reason Comments Medication Refill Encounter Details Date Type Department Care Team (Late Contact Info) Description 10/07/[address] [place] [phone] Sharon Myers ARNP [address] [place], [place] [id number] Social History Tobacco Use Types Packs/Day Years Used Date Smoking Tobacco: Never Smokeless Tobacco: Never Alcohol Use Standard Drinks/Week Comments Yes 1 (1 standard drink = 0.6 oz pur e alcohol) Sex and Gender Information Value Date Recorded Sex Assigned at Not on file Legal Sex Male 11:35 AM CDT Gender Identity Not on file Sexual Orientation Not on file documented as of this encounter Plan of Treatment Upcoming Encounters Date Type Department Care Team (Late Contact Info) Description 12/04/2025 12:30 PM CDT Appointment [facility] Heart and Vascular - Diagnostic Testing [address] [place] [phone] Default, Other [facility] [address] [place] [address] 12/04/2025 1:30 PM CDT Appointment [facility] Cardiothoracic Surgery - Cardiac Surgery [address] [place] [address] Clifton Fournier MD [address] [place] [address] documented as of this encounter Visit Diagnoses Diagnosis S/P MVR (mitral valve replacement) Heart valve replaced by other means documented in this encounter Additional Health Concerns Assessment Noted Time A fall risk assessment has been complete d for the patient 10/17/2020 4:03 PM CDT documented as of this encounter Care Teams [employer] Civil Engineer Relationship Specialty Start Date End Date Merly Sebastien [address] [place] [address] PCP - General Internal Medicine 09/24/20 Mariela Kim [address] [place] [address], [address] [place] [address] 09/24/20 11/30/22 documented as of this encounter
--- OUTSIDE RECORDS SUMMARY | 2025-02-21 12:04 | XMS_ITS | Clinical Summary ---
Author Organization [facility] Care Address [address] [place] [address] Phone Care Team Providers Care Forest Pathology Teacher Name Role Phone Sebastien Moreland Primary Care Provider [phone] Source Comments This disclosure is being made pursuant to the Care Everywhere program,applicable federal and state laws, and may not contain all informationavailable regarding this patient.[facility] Practices Allergies No known active allergies Medications tamsulosin 0.4 mg ER capsuleIndicati ons:benign prostatic hyperplasia Take 1 capsule (0.4 mg total) by mouth daily. Active finasteride 5 mg tabletIndicatio ns:benign prostatic hyperplasia Take 1 tablet (5 mg total) by mouth daily. Active omega-3 fatty acids-vitamin E 1,000 mg capsule Take 1 capsule (1,000 mg total) by mouth daily. Active clobetasol 0.05 % creamIndication s:plaque psoriasis Apply topically as needed. Active calcipotriene (DOVONEX) 0.005 % topical cream Apply topically 2 times daily as needed. Active pantoprazole 40 mg delayed release tablet Take 1 tablet (40 mg total) by mouth daily. Active cholecalciferol (VITAMIN D3) 50 mcg (2,000 unit) capsule Take 1 capsule (50 mcg total) by mouth daily. Active acetaminophen 500 mg tablet Take 1 tablet (500 mg total) by mouth every 6 hours as needed. Active loperamide 2 mg capsule Take 1 capsule (2 mg total) by mouth 4 times daily as needed. Active metoPROLol tartrate 25 mg tabletIndicatio ns:S/P MVR (mitral valve replacement) Take 0.5 tablets (12.5 mg total) by mouth every 12 hours. 30 tablet 11 1 Active atorvastatin (LIPITOR) 20 mg tabletIndicatio ns:S/P MVR (mitral valve replacement) TAKE 1 TABLET(20 MG) BY MOUTH DAILY 30 tablet 11 2 Active Additional Information Patient taking differently: 20 mg Oral At Bedtime, Reason: Other, Reported on 12/05/2024 gabapentin (NEURONTIN) 100 mg capsule Take 1 capsule (100 mg total) by mouth daily. 3 Active SERTraline 100 mg tablet Take 1 tablet (100 mg total) by mouth daily. 4 Active aspirin 81 mg enteric coated tablet Take 1 tablet (81 mg total) by mouth daily. Active amoxicillin (AMOXIL) 500 mg capsule Take 4 capsules (2,000 mg total) by mouth as needed. PRIOR TO DENTAL APPOINTMENTS AND/OR PROCEDURES 5 Active doxycycline hyclate (VIBRAMYCIN) 100 mg capsule Take 1 capsule (100 mg total) by mouth 2 times daily. 5 Active Active Problems Problem Noted Date Diagnosed Date S/P MVR (mitral valve repair) 10/16/2020 Overview (10/20/2020): 10/16/2020 was taken electively to the operating room and underwent mitral valve repair with a #35 mm attune ring annuloplasty and neochordal placement to the p2 area X 2 via right mini thoracotomy with Right femoral artery and vein cannulation for cardiopulmonary bypass via cutdown, Percutaneous right internal jugular vein cannulation. -Continue aspirin, statin, beta-enrique. Acute post-operative pain 10/16/2020 Overview (10/20/2020): Acute Post-op Pain Assess & treat pain using CVICU pain scale protocol Pain Control: - Scheduled Tylenol - Lidocaine 5% patch - PRN oxycodone & hydromorphone when extubated & clinically appropriate - APS consulted for EPS catheter placement - Consider Gabapentin POD 1 if clinically appropriate Neurological checks per CVICU protocol Acute on chronic diastolic (congestive) heart fa ilure 10/16/2020 Overview (10/20/2020): Chronic condition, present on admission Echo in May 2020 showed grade 2 diastolic dysfunction with EF of 64% Intra op ELAINA stable Post op required IV diuresis for evidence of volume overload per exam and CXR. Closely monitored intake and output, daily BMP with electrolyte replacement as needed Acute pulmonary insufficienc y following non-thoracic surgery 10/16/2020 Overview (10/20/2020): Acute Post-operative Pulmonary Insufficiency Date noted:10/16/20 2/2 postoperative atelectasis & surgical intubation CXR on admission : Stable cardiomediastinal silhouette, low lung volumes. Mild bibasilar atelectasis with possible small bilateral pleural effusions ABG on admission: pH 7.27, PCO2 55, PO2 90, bicarbonate 25 Continuous pulse oximetry Incentive spirometry Wean FiO2 to maintain SpO2 > 92 Albuterol PRN for wheezing Daily CXR & PRN ABG Severe mitral regurgitation 09/26/2020 Prostate cancer 09/26/2020 Parathyroid tumor 09/26/2020 Psoriasis 09/26/2020 Gout 09/26/2020 History of kidney stones 09/26/2020 Osteoarthritis 09/26/2020 Peripheral neuropathy 09/26/2020 IBS (irritable bowel syndrome) 09/26/2020 GERD (gastroesophageal reflux disease) Fishing hook foreign body 10/03/2012 Encounters Date Type Department Care Team Description 12/05/2024 2:30 PM CDT Office Visit [facility] - Cardiothoracic Surgery - Cardiac Surgery [address] [place] [phone] Clifton Fournier MD 12/05/2024 12:57 PM CDT - 12/05/2024 11:59 PM CDT Hospital Encounter [facility] - Heart and Vascular - Diagnostic Testing [address] [place] [address] Default, Other Stephen-Fredy Houston MD 12/05/2024 Travel from Last 3 Months Immunizations Immunization Administration Dates Next Due COVID-19, mRNA 12+ yo (PFIZE R) 30mcg/0.3mL 02/11/2021,02/11/2021,07/07/2020,2020,06/09/2020 COVID-19, mRNA, BIVALENT 12+ yo (PFIZER) 30mcg/0.3mL 03/23/2022 COVID-19, mRNA, PF 30mcg/0.3 mL (COMIRNATY) 08/08/2024 COVID-19, mRNA, PF 50mcg/0.5 mL (SPIKEVAX) 06/22/2023,06/22/2023 Influenza, PF 02/03/2021 Influenza, Quadrivalent Adjuvanted PF ,02/20/2022,04/14/2020,2019 Influenza, high dose 02/25/2023,03/12/20 19,03/12/2019,2018,02/24/2018,02/01/2017,02/01/2017 Influenza, high dose quadrivalent 12/30/2020,10/2020 Influenza, quadrivalent 05/10/2016,05/10/2016 Influenza, quadrivalent PF 02/24/2018 Influenza, unspecified 01/28/2011,01/28/2011 Pneumococcal Conjugate, PCV1 3 (Prevnar 13) 06/06/2015,06/06/2015 Pneumococcal Polysaccharide, PPSV23 (Pneumovax 23) 05/17/2011,05/16/2007,05/16/2007 Td, adult unspecified 06/05/2002,06/05/2002 Tdap 01/24/2023,10/03/2012 Zoster, live (Zostavax) 08/23/2011,08/23/2011 Social History Tobacco Use Types Packs/Day Years Used Date Smoking Tobacco: Never Smokeless Tobacco: Never Alcohol Use Standard Drinks/Week Comments Yes 1 (1 standard drink = 0.6 oz pur e alcohol) PHQ-2 Answer Date Recorded Total score/PHQ-2 0 12/05/2024 Abuse Risk Answer Date Recorded Are you in an UNsafe relationship? Not on file 07/03/2023 Does your partner/boyfriend or girlfriend hit, kick, hurt, or threaten you? Not on file 07/03/2023 Have you suffered any injury as a result of abuse in the past year? Not on file 07/03/2023 Does your partner/boyfriend or girlfriend ever try to control you by threatening you or your family? Not on file 024 Are you currently being forc ed to engage in sexual activity? Not on file 07/03/2023 Are you being abused or thre atened in your work or home environment? Not on file 07/03/2023 Are you being forced to work? Not on file Is the patient a d ependent adult ? Does not apply 07/03/2023 Do you feel unsafe at home? Not on file 06/23 Has anyone tried to force yo u to sign papers or to use your money against your will? Not on file 07/03/2023 Sex and Gender Information Value Date Recorded Sex Assigned at Not on file Legal Sex Male 11:35 AM CDT Gender Identity Not on file Sexual Orientation Not on file Last Filed Vital Signs Vital Sign Reading Time Taken Comments Blood Pressure 131/78 12/05/2024 2:08 PM CDT Pulse 64 12/05/2024 2:08 PM CDT Temperature 36.4 C (97.5 F) 12/05/2024 2:08 PM CDT Respiratory Rate 16 11/30/2023 9:49 AM CDT Oxygen Saturation 96% 12/05/2024 2:08 PM CDT Inhaled Oxygen Concentration - - Weight 101.5 kg (223 lb 12.8 oz) 12/05/2024 2:08 PM CDT Height 182 cm (5' 11.65) 12/05/2024 2:08 PM CDT Body Mass Index 30.65 12/05/2024 2:08 PM CDT Plan of Treatment Upcoming Encounters Date Type Department Care Team (Late st Contact Info) Description 12/04/2025 12:30 PM CDT Appointment [facility] - Heart and Vascular - Diagnostic Testing [address] [place] [address] Default, Other [facility] [address] [place] [address] 12/04/2025 1:30 PM CDT Appointment [facility] - Cardiothoracic Surgery - Cardiac Surgery [address] [place] [phone] Clifton Fournier MD [address] [place] [address] Health Maintenance Due Date Last Done Comments Annual Physical Visit 1943 Zoster Vaccine (2 of 3) 10/18/2011 08/23/2011, 08/22 RSV Vaccine (1 - 1-dose 75+ series) 2017 [id number] Vaccine ( season) 2024 08/08/2024, 06/22/2023, 06/22/2023, Additional history exists Influenza Vaccine: Seasonal (#1) 12/24/2024 02/25/2023, 02/25/2023, 02/20/2022, Additional history exists Tetanus Diphtheria Pertussis (3 - Td or Tdap) 01/24/2033 01/24/2023, 10/03/2012, 06/05/2002, Additional history exists Pneumococcal Vaccine Completed 06/06/2015, 06/06/2015, 05/17/2011, Additional history exists Medical Devices Implanted Type Area Hazmat Tanker Driver Device Identifier Shelf Expiration Date Model / Serial / Lot Ring Annuloplasty Attune Flexible Adjustable 35sz - [id number] Implanted:Qty: 1 on 10/16/2020 by Clifton Fournier MD at [facility] N/A: Heart [employer] [id number] 11/09/2022 [id number] / [id number] / Description:Mitral valve Procedures Procedure Name Priority Date/Time Associated Diagnosis Comments TRANSTHORACIC ECHO (TTE) COMPLETE W/ COLOR AND PW/CW Routine 12/05/2024 2:10 PM CDT H/O mitral valve repair Ascending aortic aneurysm from Last 3 Months Results * TRANSTHORACIC ECHO (TTE) COMPLETE W/ COLOR AND PW/CW (12/05/2024 2:10 PM CDT) Interpretation Summary s/p Mitral valve repair The mitral valve mean gradient = 3 mmHg No mitral regurgitation by color or spectral Doppler. Normal left ventricular size. Normal left ventricular systolic function. The Sinus of Valsalva measures 3.9cm The ascending aorta is dilated The ascending aorta measures 4.7cm Normal right ventricular systolic function. LV Ejection Fraction = 67% (based on Biplane Method of Discs). [facility] Patient Height 180.7909557467119 7 cm [facility] Patient Weight 102.06 kg [facility] Systolic Pressure (mmHg) 144 mmHg [facility] Diastolic Pressure (mmHg) 78 mmHg [facility] BSA (meters^2) 2.22 m^2 [facility] Aorta and Pulmonary Artery (Ao, PA) The Sinus of Valsalva measures 3.9cm The ascending aorta measures 4.7cm The ascending aorta is dilated [facility] Aortic Valve (AoV) Mildly calcified aortic valve leaflets. Trileaflet Aortic valve. Mild aortic insufficiency by color and spectral Doppler. No hemodynamically significant valvular aortic stenosis by doppler [facility] Inferior Vena Cava (IVC) / Pulmonary Veins A normal IVC diameter which collapses greater than 50% would support an normal RA pressure of 3 mmHg (range 0-5mmHg). [facility] Left and Right Atria (LA, RA) Normal LA chamber size. Normal right atrial size. [facility] Left Ventricle (LV) Normal left ventricular size. Left ventricular hypertrophy. Normal left ventricular systolic function. LV Ejection Fraction = 67% (based on Biplane Method of Discs). [facility] Mitral Valve (MV) The mitral valve mean gradient = 3 mmHg No mitral regurgitation by color or spectral Doppler. [facility] Procedures Complete 2D with Doppler, Color Flow and image documentation ([id number]) [facility] Pulmonic Valve (PV) The pulmonic valve leaflets are poorly seen. Trace pulmonic regurgitation by color and spectral Doppler. [facility] Right Ventricle (RV) Normal right ventricular systolic function. [facility] Technical Comments Echo image quality: marginal [facility] Tricuspid Valve (TV) Visualization of the TV is poor. Trace tricuspid regurgitation by color and spectral Doppler. [facility] IVSd 1.47 cm [facility] LVIDd 5.7 cm [facility] LVIDs 3.14 cm [facility] LVPWd 1.34 cm [facility] IVS/LVPW 1.1 [facility] FS 44.88 % [facility] LV mass(C)d 360.23 grams [facility] LV mass(C)dI 162.47 grams/m ^2 [facility] LA dimension 4.22 cm [facility] asc Aorta Diam 4.66 cm [facility] LVOT diam 2.25 cm [facility] LVOT area 3.97 cm^2 [facility] LVAd ap4 38.7 cm^2 [facility] LVLd apical(4ch) 8.84 cm HELADIO LT [facility] LVLs apical(4ch) 7.46 cm HELADIO LT [facility] EF(MOD-sp4) 67.23 % [facility] LVLd ap2 8.74 cm [facility] LVLs ap2 7.06 cm [facility] EF (MOD-sp2) 73.7 % [facility] SV (MOD-sp2) 113.5 ml [facility] MV E max fawn 121.1 cm/sec [facility] MV A max fawn 128.54 cm/sec [facility] MV E/A 0.94 [facility] MV mean PG 3.23 mmHg [facility] MV P1/2t 116.33 msec [facility] MVA(P1/2t) 1.89 cm^2 [facility] MV dec slope 299.03 cm/sec^ 2 [facility] MV dec time 0.31 sec [facility] Ao V2 max 119.45 cm/sec [facility] Ao max PG 5.71 mmHg [facility] Ao max PG (full) 1.02 mmHg HELADIO LT [facility] Ao V2 mean 80.51 cm/sec [facility] Ao mean PG 3.06 mmHg [facility] Ao mean PG (full) 0.48 mmHg [facility] Ao V2 VTI 26.65 cm [facility] SÁNCHEZ(I,A) 3.76 cm^2 [facility] SÁNCHEZ(I,D) 3.76 cm^2 [facility] SÁNCHEZ(V,A) 3.6 cm^2 [facility] SÁNCHEZ(V,D) 3.6 cm^2 [facility] AI dec slope 264.19 cm/sec^ 2 [facility] AI dec time 0.46 sec [facility] AI P1/2t 466.83 msec [facility] LV V1 max PG 4.69 mmHg [facility] LV V1 mean PG 2.59 mmHg [facility] LV V1 max 108.3 cm/sec [facility] LV V1 mean 74.48 cm/sec [facility] LV V1 VTI 25.18 cm [facility] PA V2 max 74.66 cm/sec [facility] PA max PG 2.23 mmHg [facility] TR Max fawn 185.51 cm/sec [facility] TR Max PG 13.81 mmHg [facility] Low Range of LVEF 67 [facility] High Range of LVEF 67 [facility] Reason for Study H/O mitral valve repair [Z98.890 (ICD-10-CM)]; Ascending aortic aneurysm [I71.21 (ICD-10-CM)] [facility] Sewer Pipe Sorter Carmelita Brennan [facility] Interpreting Physician MARIANNE HOLT electronically signed on 2024-12-05 15:23:25.43 [facility] Anatomical Region Laterality Modality Adult Echo 12/05/2024 1:24 PM CDT Mary MOREL ECHO ORDERABLES Final Res ult from Last 3 Months Insurance MEDICARE A & B [facility] MEDICARE A & B [facility] BLUE [facility] Advance Directives For more information, please contact: [phone] Documents on File Type Date Recorded Patient Merchandise Pickup/Receiving Associate Expl anation External-Advance Directive/Living Will/Durable Power of Organization Development Consultant for Health Care 10/02/2020 3:03 PM Durable POA for [facility] Care 09/02/20 * Full Code (Latest Code Status on File) Date Activated Date Inactivated Comments 10/16/2020 3:21 PM 10/20/2020 4:45 PM * Full Code Date Activated Date Inactivated Comments 10/16/2020 2:54 PM 10/16/2020 3:21 PM Care Teams Forest Pathology Teacher Relationship Specialty Start Date End Date Sebastien Moreland [address] [place] [address] PCP - General Internal Medicine 09/24/20
--- OUTSIDE RECORDS SUMMARY | 2025-02-21 12:04 | XMS_ITS | Referral Summary ---
Author Organization [facility] Care Address [address] [place] [address] Phone Care Team Providers Care Outside Deliverer Name Role Phone Sebastien Moreland Primary Care Provider [phone] Source Comments This disclosure is being made pursuant to the Care Everywhere program,applicable federal and state laws, and may not contain all informationavailable regarding this patient.[facility] Practices Encounters Date Type Department Care Team Description 12/05/2024 Travel 12/05/2024 2:30 PM CDT Office Visit Medical [facility] - Cardiothoracic Surgery - Cardiac Surgery [address] [place] [phone] Clifton Fournier MD 12/05/2024 12:57 PM CDT - 12/05/2024 11:59 PM CDT Hospital Encounter Medical [facility] - Heart and Vascular - Diagnostic Testing [address] [place] [phone] Default, Other Stephen-Fredy Houston MD from Last 3 Months Allergies No known active allergies Medications tamsulosin [...] reflux disease) Fishing hook foreign body 10/03/2012 Immunizations Immunization Administration Dates Next Due COVID-19, [...] Info) Description 12/04/2025 12:30 PM CDT Appointment [facility] - Heart and Vascular - Diagnostic Testing [address] [place] [address] Default, Other [facility] [address] [place] [address] 12/04/2025 1:30 PM CDT Appointment [facility] - Cardiothoracic Surgery - Cardiac Surgery [address] [place] [phone] Clifton Fournier MD [address] [place] [address] Medical Devices Implanted Type Area Fleet Maintenance Manager Device Identifier Shelf Expiration Date Model / Serial / Lot Ring Annuloplasty Attune Flexible Adjustable 35sz - [id number] Implanted:Qty: 1 on 10/16/2020 by Clifton Fournier MD at [facility] N/A: Heart [employer] [id number] 11/09/2022 AF5 / [id number] / Description:Mitral valve Procedures Procedure Name Priority [...] of Discs). [facility] Patient Height 180.2150935646946 7 cm [facility] Patient Weight [...] with Doppler, Color Flow and image documentation ([id number]) [facility] Pulmonic Valve (PV) The [...] aortic aneurysm [I71.21 (ICD-10-CM)] [facility] Net Technical Architect Carmelita Brennan [facility] Interpreting Physician MARIANNE HOLT electronically signed on 2024-12-05 15:23:25.43 [facility] Anatomical Region Laterality Modality Adult Echo 12/05/2024 1:24 PM CDT us Mary Malvin MOREL ECHO ORDERABLES Final Res ult from Last 3 Months Insurance MEDICARE A & B Member Subscriber Plan / Payer ( fective 2007-Present) Name:CHRISTINA SIMMONS Member ID:[id number] Relation to Subscriber:Self Name:Christina Simmons Subscriber ID:[id number] Payer ID:Not on file Group ID:Not on file Type:Not on file Address: [address] Stand Offer [facility] MEDICARE A & B Member Subscriber Plan / Payer ( fective 2007-Present) Name:CHRISTINA SIMMONS Member ID:[id number] Relation to Subscriber:Self Name:Christina Simmons Subscriber ID:[id number] Payer ID:Not on file Group ID:Not on file Type:Not on file Address: [address] Stand Offer [facility] Advance Directives For more information, please contact: [phone] Documents on File Type Date Recorded Patient Superintendent Overhead Distribution Expl anation External-Advance Directive/Living Will/Durable Power of Navy Fighter Pilot for Health Care 10/02/2020 3:03 PM Durable POA for [facility] Care 09/02/20 * Full Code (Latest Code Status on File) Date Activated Date Inactivated Comments 10/16/2020 3:21 PM 10/20/2020 4:45 PM * Full Code Date Activated Date Inactivated Comments 10/16/2020 2:54 PM 10/16/2020 3:21 PM Care Teams Outside Deliverer Relationship Specialty Start Date End Date Sebastien Moreland [address] [place] [address] PCP - General Internal Medicine 09/24/20
--- OUTSIDE RECORDS SUMMARY | 2025-02-21 12:04 | XMS_ITS | Encounter Summary ---
Author Organization [facility] Care Address [address] [place] [address] Phone Care Team Providers Care Assisted Sales Representative Name Role Phone Sebastien Moreland Primary Care Provider [phone] Mariela Kim Unavailable [phone] Reason for Visit * Reason Comments Medication Refill Encounter Details Date Type Department Care Team (Late Contact Info) Description 10/05/[address] [place] [phone] Sharon Myers ARNP [address] [place], [place] [phone] Social History Tobacco Use Types Packs/Day Years [...] Info) Description 12/04/2025 12:30 PM CDT Appointment [facility] Heart and Vascular - Diagnostic Testing [address] [place] [phone] Default, Other [facility] [address] [place] [address] 12/04/2025 1:30 PM CDT Appointment [facility] Cardiothoracic Surgery - Cardiac Surgery [address] [place] [address] Clifton Fournier MD [address] [place] [address] documented as of this encounter Visit Diagnoses Diagnosis S/P MVR (mitral valve replacement) Heart valve replaced by other means documented in this encounter Additional Health Concerns Assessment Noted Time A fall risk assessment has been complete d for the patient 10/17/2020 4:03 PM CDT documented as of this encounter Care Teams Assisted Sales Representative Relationship Specialty Start Date End Date Merly Sebastien [address] [place] [address] PCP - General Internal Medicine 09/24/20 Mariela Kim [address] [place] [address], [address] [place] [address] 09/24/20 11/30/22 documented as of this encounter
--- OUTSIDE RECORDS SUMMARY | 2025-02-21 12:05 | XMS_ITS | Encounter Summary ---
Author Organization [facility] ([facility]) Address [address] [place] [address] Phone Care Team Providers Care Hourly Sign Language Interpreter Name Role Phone Felipe White MD Primary Care Provider [phone] None Primary Care Provider [phone] Sebastien Moreland DO Primary Care Provider [phone] Reason for Referral * Physical Therapy (Routine) - Closed Specialty Diagnoses / Procedures Referred By Contac t Referred To Contact Physical Therapy Diagnoses Other psoriasis Procedures PT Treat Salas Pompa MD [address] [place] [address] Phone: tel: fax: Referral ID Status Reason Start Date Expiration Date Visits Re quested Visits Authorized [id number] Closed 05/10/2013 09/22/2013 25 25 MOTIVE ENGINEER DIESEL Encounter Details Date Type Department Care Team (Late st Contact Info) Description 05/10/2013 Orders Only [facility] Outpatient Physical Rehab [address] [facility], [address] [place] [phone] Radha Russo Other psoriasis (Primary Dx) Social History Tobacco Use Types Packs/Day Years Used Date Smoking Tobacco: Never Assessed Sex and Gender Information Value Date Recorded Sex Assigned at Not on file Legal Sex Male 10:55 AM LOCOMOTIVE ENGINEER DIESEL Gender Identity Not on file Sexual Orientation Not on file documented as of this encounter Plan of Treatment Not on file documented as of this encounter Visit Diagnoses Diagnosis Other psoriasis- Primary documented in this encounter Care Teams Hourly Sign Language Interpreter Relationship Specialty Start Date End Date Felipe White MD [address] [place] [address] PCP - General General Medicine 05/07/13 03/09/22 [place] [address] PCP - General 03/10/22 03/05/24 Sebastien Moreland DO [address] [place] [place] [address] [place] [address] PCP - General Internal Medicine 03/06/24 documented as of this encounter
--- OUTSIDE RECORDS SUMMARY | 2025-02-21 12:05 | XMS_ITS | Encounter Summary ---
Author Organization [facility] Care Address [address] [place] [address] Phone Care Team Providers Care Steel Analyst Name Role Phone Sebastien Moreland Primary Care Provider [phone] Mariela Kim Unavailable [phone] Encounter Details Date Type Department Care Team (Late st Contact Info) Description 10/02/2020 Pharmacy Visit Medical [facility] [address] [place] [phone] Social History Tobacco Use Types Packs/Day Years Used Date Smoking Tobacco: Never Smokeless Tobacco: Never Sex and Gender Information Value Date Recorded Sex Assigned at Not on file Legal Sex Male 11:35 AM CDT Gender Identity Not on file Sexual Orientation Not on file documented as of this encounter Plan of Treatment Upcoming Encounters Date Type Department Care Team (Late st Contact Info) Description 12/04/2025 12:30 PM CDT Appointment [facility] Heart and Vascular - Diagnostic Testing [address] [place] [phone] Default, Other [facility] [address] [place] [address] 12/04/2025 1:30 PM CDT Appointment [facility] Cardiothoracic Surgery - Cardiac Surgery [address] [place] [phone] Clifton Fournier MD [address] [place] [address] documented as of this encounter Visit Diagnoses Not on filedocumented in this encounter Care Teams Steel Analyst Relationship Specialty Start Date End Date Sebastien Moreland [address] [place] [address] PCP - General Internal Medicine 09/24/20 Mariela Kim [address] [place] [address], [address] [place] [address] 09/24/20 11/30/22 documented as of this encounter
--- OUTSIDE RECORDS SUMMARY | 2025-02-21 12:05 | XMS_ITS ---
Author Organization [facility] ([facility]) Address [address] [place] [address] Phone Care Team Providers Care Beef Splitter Name Role Phone Sebastien Moreland DO Primary Care Provider [phone] Active Problems Problem Noted Date Diagnosed Date Thrombocytopenia 03/18/2024 Presbyopia 03/14/2024 Acute on chronic diastolic (congestive) heart fa ilure 10/16/2020 Overview (03/14/2024): Chronic condition, present on admission Echo in May 2020 showed grade 2 diastolic dysfunction with EF of 64% Intra op ELAINA stable Post op required IV diuresis for evidence of volume overload per exam and CXR. Closely monitored intake and output, daily BMP with electrolyte replacement as needed Acute post-operative pain 10/16/2020 Overview (03/14/2024): Acute Post-op Pain Assess & treat pain using CVICU pain scale protocol Pain Control: - Scheduled Tylenol - Lidocaine 5% patch - PRN oxycodone & hydromorphone when extubated & clinically appropriate - APS consulted for EPS catheter placement - Consider Gabapentin POD 1 if clinically appropriate Neurological checks per CVICU protocol Acute pulmonary insufficienc y following non-thoracic surgery 10/16/2020 Overview (03/14/2024): Acute Post-operative Pulmonary Insufficiency Date noted:10/16/20 2/2 postoperative atelectasis & surgical intubation CXR on admission : Stable cardiomediastinal silhouette, low lung volumes. Mild bibasilar atelectasis with possible small bilateral pleural effusions ABG on admission: pH 7.27, PCO2 55, PO2 90, bicarbonate 25 Continuous pulse oximetry Incentive spirometry Wean FiO2 to maintain SpO2 > 92 Albuterol PRN for wheezing Daily CXR & PRN ABG S/P MVR (mitral valve repair) 10/16/2020 Overview (03/14/2024): 10/16/2020 was taken electively to the operating room and underwent mitral valve repair with a #35 mm attune ring annuloplasty and neochordal placement to the p2 area X 2 via right mini thoracotomy with Right femoral artery and vein cannulation for cardiopulmonary bypass via cutdown, Percutaneous right internal jugular vein cannulation. -Continue aspirin, statin, beta-enrique. 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 Past Treatment and Therapy Plans No past plan information found. Treatment Summaries Prostate cancer (HCC)* [facility] Treatment Summary and Survivorship Care Plan for Prostate Cancer General Information Patient Name: Quan Simmons Patient : 1940 Patient phone: [phone] (home) E-mail: [email or web address] [facility] Providers (Including Names, Institution, Phone Numbers) Primary Care Provider: Felipe White MD; [phone] Radiation Oncologist: Jong Boyd MD; [facility]; [phone] Urology: Hieu Diaz MD; [facility].; [phone] and Medardo Lynch MD; [facility].; [phone] Treatment Summary Diagnosis Cancer Type/Histology Subtype: Prostate; adenocarcinoma [place] Score: 4+4=8 PSA: 17.61 Location: left lobe Diagnosis Date (year): December 03, 2015 Stage: Stage IIB (T1c N0 M0) Treatment Surgical procedure/location/findings: 12/03/2015: Transrectal ultrasound-guided biopsy of the prostate revealed adenocarcinoma to the leftlobe, no lymphovascular or perineural tumor invasion noted. No malignancy identified in the right lobe. Systemic Therapy (chemotherapy, hormonal therapy, other): 12/19/2015: Degarelix (firmagon) injection 01/21/2016: Leuprolide acetate (Lupron) injection Radiation: Intensity Modulated Radiation Therapy (IMRT) Body area treated: Periprostatic lymphatic Seminal Vesicles Prostate Dose: 4600 cGy 6000 cGy 7600 cGy Dates: 04/05/2016- Familial Cancer Risk Assessment Genetic/hereditary risk factor(s) or predisposing conditions: Father with history of bladder and colon cancer Sister with history of colon cancer Genetic counseling: offered Genetic testing results: N/A Follow-up Care Plan Need for ongoing (adjuvant) treatment for cancer: yes Additional treatment name Planned duration Possible Side effects Leuprolide acetate (Lupron) 2-3 years Hot flashes, night sweats, fatigue, headache, weight gain, arthralgias, nausea, diarrhea, constipation, insomnia, decreased sex drive Schedule of clinical visits/Other Recommended or Related Tests Coordinating Provider When/How often/What Dr. Diaz Detailed history and physical exam with PSA testing at least every 6 months for 2-3 years with Lupron injection. Then every 6-12 months until 5 years post completion of radiation therapy,annually thereafter. Imaging studies as clinically indicated. Dr. White Routine health maintenance and screening. Cancer surveillance Please continue to see your primary care provider for all general health care recommended for your age, including cancer screening tests. The following are important symptoms to report to your cancerdoctors if you notice them between exams: ?? New persistent pain or stiffness in the lower back, hips, or upper thighs Cancer survivors may experience issues with the areas below. Please let us know if you wish assistance with any of these concerns. ? Smoking Cessation ? Meat Cooler or Assistance with Insurance Issues ? Nutrition/Weight Changes ? Emotional or Mental Health ? Exercise/Deconditioning ? Parenting ? Fertility/Sexuality ? Integrative Medicine ? Physical Therapy/Occupational Therapy ? Cancer Support Group ? Speech or Swallowing Therapy ? Pulmonary Rehab ? Pain Management ? Genetics Possible late & long-term effects that someone with this type of cancer may experience As you finish active cancer treatment and move into the survivorship phase, you may find you feel about the same as you did before you had cancer. Or you may find that you have continued physical, psychosocial, or financial concerns because of your prior treatments. This may be your new normal. Many cancer survivors experience some of the following late or jail side effects. Cancer Recurrence or Secondary Cancers - All cancer patients live with the possibility that the cancer may return or spread (metastasize) to other organs. Very rarely, patients may also develop secondary cancers which may be related to their initial cancer therapy. You will be monitored for these by your oncologist. Fatigue - Cancer related fatigue is common and may result from the cancer, its treatment, and treatment side-effects. Survivors may complain that they always feel tired, regardless of how much sleep they get. Staying active, drinking plenty of fluids, getting extra rest and time may help. Talk to your physician about coping strategies including exercise, relaxation skills, and energy conservation. Urinary Dysfunction - Sometimes, after therapy men experience irritative symptoms with urination such as urinary frequency, urgency, hesitancy, painful urination, or urinary retention. Persistent symptoms may include overactive bladder, decreased urinary stream, blood in the urine, or urinating at night. Treatment options are available for these symptoms. Sexual Dysfunction - Physical and emotional aspects of sexual function can be impacted by prostate cancer treatment. Erectile dysfunction may occur in prostate cancer survivors, and may have a delayed onset. If you develop difficulty with erections or sexual function notify a member of your care team. Bowel Dysfunction - Bowel irregularity, bloating, cramps, diarrhea, constipation, and minor rectal bleeding are possible side effects of local radiation therapy. Discuss bothersome symptoms and rectal bleeding with your care team for management. Endocrine Changes - some cancer treatments are designed to eliminate the sex hormones that many cancers need to grow. This may result in loss of body hair, decreased sex drive, depression, memory loss, and weight gain. Talk to your oncologist or urologist if you have trouble with these symptoms. Anemia - Some cancer treatments can decrease the amount of hemoglobin produced by the body. Common symptoms include fatigue, headaches, dizziness, pale skin, and activity intolerance. If you are experiencing these problems ask your oncologist for further help. Osteoporosis - Bone loss is a common side effect for many survivors and may increase the risk of fracture. Your oncologist will follow this and can prescribe medication if needed. Health Screening Considerations - You should not schedule a routine screening colonoscopy for at least 4 months after completing radiation to the prostate. Be sure to tell your testboard operator (provider who does colonoscopy) that you have had radiation to the prostate. Wellness & Lifestyle Recommendations A number of behaviors can affect your ongoing health, including the risk for cancer to return or developing another cancer. Good nutrition and exercise can increase energy and endurance, reduce your risk of cancer, help relieve jail side effects of treatment, improve your mood, manage your weight, and improve your heart and lung health. Let us know if you would like assistance achieving these goals. Overall lifestyle recommendations include: ? Quit smoking ? Exercise at least 30 minutes most days of the week ? Eat a healthy diet which is lower in fat ? Eat at least 5 servings of fruits and vegetables per day (serving = ?? cup) ? Limit daily salt intake ? Use sun screen ? Limit alcohol intake (women no more than 1 drink/day and men no more than 2 drinks per day) ? Avoid recreational drugs Resources you may be interested in: Navigating Cancer: www.[employer]: Www.livestrong.org [place] Cancer Society: Www.acs.org Journey Forward: www.journeyforward.org Cancer Support Community: www.cancersupportcommunity.org Cancer Care: www.cancercare.org Cancer Wellness Center: www.[facility].org Prostate Cancer Foundation: Www.pcf.org [facility]- International Prostate Cancer Education and Support Group: Www.ustoo.org Prepared by: MARIA TERESA Ahumada This document has been provided to the patient and reviewed with them by clinical oncology staff on07/01/2016. This Survivorship Care Plan is a cancer treatment summary and follow-up plan provided to you to keep with your health care records. This document has been shared with your primary care provider and other members of your health care team. This summary is a brief record of major aspects of your cancer treatment. This is not a detailed orcomprehensive record of your care.
--- OUTSIDE RECORDS SUMMARY | 2025-02-21 12:05 | XMS_ITS | Encounter Summary ---
Author Organization [facility] Care Address [address] [place] [address] Phone Care Team Providers Care Cow Washer Name Role Phone Sebastien Moreland Primary Care Provider Mariela Kim Unavailable [phone] Encounter Details Date Type Department Care Team (Late st Contact Info) Description 10/14/2020 Pharmacy Visit Medical [facility] [address] [place] [phone] Social History Tobacco Use Types Packs/Day Years [...] Info) Description 12/04/2025 12:30 PM CDT Appointment [facility] Heart and Vascular - Diagnostic Testing [address] [place] [phone] Default, Other [facility] [address] [place] [address] 12/04/2025 1:30 PM CDT Appointment [facility] Cardiothoracic Surgery - Cardiac Surgery [address] [place] [phone] Clifton Fournier MD [address] [place] [address] documented as of this encounter Visit Diagnoses Not on filedocumented in this encounter Care Teams Cow Washer Relationship Specialty Start Date End Date Sebastien Moreland [address] [place] [address] PCP - General Internal Medicine 09/24/20 Mariela Kim [address] [place] [address], [address] [place] [address] 09/24/20 11/30/22 documented as of this encounter
--- OUTSIDE RECORDS SUMMARY | 2025-02-21 12:05 | XMS_ITS | Clinical Summary ---
Author Organization [facility] ([facility]) Address [address] [place] [address] Phone Care Team Providers Care Claims Vice President Name Role Phone Sebastien Moreland Primary Care Provider [phone] Allergies Active Allergy Reactions Criticality Noted Date Comments Hydrocodone Hives,Rash Low 02/19/2016 Medications allopurinol (ZYLOPRIM) 100 MG tablet Take 2 tablets (200 mg total) by mouth daily. Active aspirin 81 MG EC tablet Take 1 tablet (81 mg total) by mouth daily. Active calcipotriene (DOVONOX) 0.005 % ointment Apply topically 2 (two) times daily. Active clobetasol (CLOBEX) 0.05 % lotion Apply topically 2 (two) times daily. Active omega-3 fatty acids-vitamin E (FISH OIL) 1,000 mg Cap Take by mouth. Ac tive finasteride (PROSCAR) 5 mg tablet Take 1 tablet (5 mg total) by mouth daily. Active losartan (COZAAR) 50 MG tablet Take 1 tablet (50 mg total) by mouth daily. Active tamsulosin (FLOMAX) 0.4 mg Cp24 Take 1 capsule (0.4 mg total) by mouth daily. Active acetaminophen (TYLENOL) 500 MG tablet Take 2 tablets (1,000 mg total) by mouth every 6 (six) hours as needed for Pain. Active aMILoride (MIDAMOR) 5 MG tablet Take 10 tablets (50 mg total) by mouth daily. Active leuprolide, 6 month, (ELIGARD) 45 mg injection Inject 45 mg under the skin every 6 (six) months. Active ibuprofen 200 MG tablet Take 1 tablet (200 mg total) by mouth every 6 (six) hours as needed for Pain. Active oxyCODONE-aceta minophen (PERCOCET) 5-325 mg per tablet TAKE 1 TABLET BY MOUTH EVERY 8 HOURS NEEDED FOR SEVERE PAIN 4 Active gabapentin (NEURONTIN) 100 MG capsule Take 1 capsule (100 mg total) by mouth at bedtime. 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 Encounters Date Type Department Care Team Description 12/26/2024 Orders Only [facility] [address] [place] [phone] Hieu Young MD Lumbar spondylosis from Last 3 Months Family History Medical History Relation Name Comments Cervical cancer Father bladder Colon cancer Father Colon cancer Maternal Uncle Colon cancer Paternal Aunt Cancer Paternal Grandmother stomach CA Colon cancer Paternal Uncle Colon cancer Sister Relation Name Status Comments Father Maternal Uncle Paternal Aunt Paternal Grandmother Paternal Uncle Sister Social History Tobacco Use Types Packs/Day Years Used Date Smoking Tobacco: Never Smokeless Tobacco: Never Tobacco Cessation:Counseling Given: No Alcohol Use Standard Drinks/Week Comments No 0 (1 standard drink = 0.6 oz pur e alcohol) rarely Sex and Gender Information Value Date Recorded Sex Assigned at Not on file Legal Sex Male 10:55 AM BRANCH ASSISTANT Gender Identity Not on file Sexual Orientation Not on file Last Filed Vital Signs Vital Sign Reading Time Taken Comments Blood Pressure 124/81 04/19/2024 8:59 AM BRANCH ASSISTANT Pulse 68 04/19/2024 8:59 AM BRANCH ASSISTANT Temperature 36.1 C (96.9 F) 04/19/2024 8:59 AM BRANCH ASSISTANT Respiratory Rate 16 03/04/2024 12:04 PM BRANCH ASSISTANT Oxygen Saturation 95% 04/19/2024 8:59 AM BRANCH ASSISTANT Inhaled Oxygen Concentration - - Weight 101.6 kg (224 lb) 03/15/2024 1:17 PM BRANCH ASSISTANT Height 180.3 cm (5' 11) 03/15/2024 1:17 PM BRANCH ASSISTANT Body Mass Index 31.24 03/15/2024 1:17 PM BRANCH ASSISTANT Plan of Treatment Health Maintenance Due Date Last Done Comments GLAUCOMA SCREENING 67+ YR 2009 ZOSTER VACCINES (1 of 2) 10/18/2011 08/23/2011 RSV PATIENTS AGED 60+ OR (1 - 1-dose 75+ series) 2017 INFLUENZA VACCINE (#1) 2024 , 02/20/2022, 02/03/2021, Additional history exists COVID VACCINES (7 - Pfizer risk 2023- season) 02/07/2025 08/08/2024, 06/22/2023, 03/23/2022, Additional history exists DTAP/TDAP/TD VACCINES (3 - Td or Tdap) 01/24/2033 01/24/2023, 10/03/2012, 06/05/2002 PNEUMOCOCCAL (50+) VACCINE Completed 06/06, 05/17/2011, 05/16/2007 HEPATITIS A VACCINES Aged Out No long er eligible based on patient's age to complete this topic HEPATITIS B VACCINES Aged Out No long er eligible based on patient's age to complete this topic HPV VACCINES Aged Out No longer eligi ble based on patient's age to complete this topic MENINGOCOCCAL B VACCINE Aged Out No l onger eligible based on patient's age to complete this topic MENINGOCOCCAL VACCINE Aged Out No [place] james eligible based on patient's age to complete this topic POLIO VACCINES Aged Out No longer charley gible based on patient's age to complete this topic Insurance MEDICARE PART A & B [facility] Advance Directives For more information, please contact: [phone] Documents on File Type Date Recorded Patient Charge Master Coordinator Expl anation Advance Directives and Living Will 03/15/2024 2:08 PM Living Will Power of Outlet Manager 03/15/2024 2:07 PM Taisha r of Outlet Manager- Conrado Simmons Care Teams Claims Vice President Relationship Specialty Start Date End Date Sebastien Moreland DO [address] [place] [address] PCP - General Internal Medicine 03/06/24
--- OUTSIDE RECORDS SUMMARY | 2025-02-21 12:05 | XMS_ITS | Patient Health Record ---
Author Organization [facility] Address [place], [place] [id number] Care Team Providers Care Employment Instructional Associate Name Role Phone AprilSebastien onofre DO Primary Care Provider Felisha FLORES MD, JURGEN Unavailable LANG FISCHER Unavailable [phone] Allergies No Known Allergies Results Component Value Reference Range Notes KUB- AP view of Abdomen & Bl adder Reviewed date:04/26/2024 10:21:29 AM Interpretation: Performing Lab: Notes/Report: [facility] study is available for viewing KUB- AP view of Abdomen & Bl adder Reviewed date:07/18/2024 01:31:54 PM Interpretation: Performing Lab: Notes/Report: [facility] Imaging study is available for viewing EKG with Detective Interp retation Reviewed date:07/18/2024 01:36:07 PM Interpretation: Performing Lab: Notes/Report: KUB- AP view of Abdomen & Bl adder Reviewed date:08/02/2024 08:33:55 AM Interpretation: Performing Lab: Notes/Report: [facility] Imaging study is available for viewing PSA Reviewed date:04/26/2024 10:39:21 AM Interpretation: Performing Lab:, [facility], [address] [facility] Notes/Report: Draw Location: PCI PSA 0.056 0.000-4.000 ng/mL PSA WAS PE RFORMED USING THE [facility] ELECTROCHEMILUMINESCENCE IMMUNOASSAY ON THE GUS PURE e402. VALUES OBTAINED WITH DIFFERENT ASSAY METHODS CANNOT BE USED INTERCHANGEABLY DUE TO VICE PRESIDENT PAYMENT VARIABILITY AND SPECIFICITY. Reason For Referral Reason No PA needed-- Surge ry 07/20 op sccr Diagnosis 1 Nephrolithiasis (N20 .0) Referral Organization [facility] Referring Provider First Name JURGEN Referring Provider Last Name MARK Referring Provider Speciality Urology Referred Organization [facility] Referred Provider JURGEN FLORES Referred Address [address] [place] [address] SEC LESIA Ricketts,[id number],[place] Referred Provider Specialty Urology Procedure 1 Cystouretero W/Litho tripsy (37061) General Notes Мария Lopez 02:59:49 PM >[place] [address] per Medicare w/ [employer] Medicare Blue Supplement. Referral Priority Urgent Referral Appointment Date 07/20/2024 Medications Medication SIG (Take, Route, Frequency, Duration) Notes Start Date End Date Status Amoxicillin 500 MG Capsule 2capsule Oral ly for dental procedure 08/02/2024 Active Sertraline HCl 25 MG Tablet 1 tablet Ora lly twice daily; Duration: 30 days 10/09/2020 Active Gabapentin 100 MG Capsule 2 capsule Oral ly Once a day 04/20/2023 Active Tamsulosin HCl 0.4 MG Capsule 1 capsule Orally Once a day; Duration: 90 days Active Atorvastatin Calcium 20 MG Tablet 1 tablet Orally Once a day Active Vitamin D3 2000 UNIT Capsule 1 capsule Orally Once a day; Duration: 75 Active Fish Oil 1000 MG Capsule 1 capsule Orall y Once a day; Duration: 30 day(s) Active Tylenol 8 Hour 650 MG Tablet Extended Release 2 tablets as needed Orally prn Active Loperamide HCl 2 MG Capsule 1 capsule as needed Orally prn 10/09/2020 Active Pantoprazole Sodium 40 MG Tablet Delayed Release 1 tablet Orally Once a day Active Sulfamethoxazole-Trimethopr im 800-160 MG Tablet 1 tablet Orally twice daily; Duration: 3 days 07/20/2024 Active Clobetasol Propionate 0.05 % Cream 1 application Externally Twice a week Active Aspirin 81 MG Tablet Chewable 1 tablet Orally Once a day Active Metoprolol Tartrate 25 MG Tablet 1/2 tablet Orally Twice a day Active Finasteride 5 MG Tablet TAKE 1 TABLET EV JEWEL DAY Orally Once a day; Duration: 90 days Active Immunizations Vaccine Route Administration Date Status Comme nts Influenza, high dose seasona l 65+yrs Unknown 03/05/2019 Administered Influenza, high dose seasona l 65+yrs Unknown 03/26/2020 Refused Influenza, high dose seasona l 65+yrs Unknown 01/26/2022 Refused Influenza, high dose seasona l 65+yrs Unknown 02/25/2023 Administered Influenza, seasonal, injecta ble, preservative free, 3 yrs and above Unknown 02/03/2021 Administered Pneumococcal polysaccharide PPSV 23 Unknown 05/16/2007 Administered Pneumovax PPSV23 Unknown 05/17/2011 Administered zzInfluenza (split), 3 yrs a nd above Unknown 02/24/2018 Administered Social History Tobacco Use: Social History Observation Description Date Details (start date - stop date) Never Smoker NA - NA Social History Drugs/Alcohol: Social Info Question Answer Notes Drugs Have you used drugs other than those for medical reasons in the past 12 months? No Drug/Alcohol: Social Info Question Answer Notes AUDIT-C (Standard) Did you have a drink containing alcohol in the past year? Yes How often did you have six or more drinks on one occasion in the past year? 4 or more times a week (4 points) How many drinks did you have on a typical day when you were drinking in the past year? 1 or 2 drinks (0 point) How often did you have a drink containing alcohol in the past year? Daily or almost daily (4 points) Points 8 Interpretation Positive Tobacco Use: Social Info Question Answer Notes Tobacco Control (Standard) Tobacco use: Nonsmoker Tobacco use other than smoking: Are you an other tobac co user? No Additional Details Category Social Info Options Details Miscellaneous: Marital status: Occupation: Retired Drugs/Alcohol: Do you smoke marijuana? De nies Do you drink alcohol? Yes Section Notes: Social History verified Social History verified Social History verified Social History verified Social History verified Social History verified Social History verified Social History verified Social History verified Social History verified Social History verified Social History verified Social History verified Social History verified Social History verified Problems Problem Type SNOMED Code ICD Code Onset Dates Problem Status W/U Status Risk Notes Problem Phimosis (610458435) Phimosis (N47.1) Active confirmed Problem Balanitis (68185178) Balanitis (N48.1) Active confirmed Problem History of malignant neoplasm of prostate (025214225) Personal history of malignant neoplasm of prostate (Z85.46) Active confirmed Problem History of radiation exposure (586271351) Personal history of irradiation (Z92.3) Active confirmed Problem Lower urinary tract symptoms due to benign prostatic hypertrophy (57378949077471) Benign prostatic hyperplasia with lower urinary tract symptoms (N40.1) Active confirmed Problem Kidney stone (15136406) Kidney stone (N20.0) Active confirmed Problem Nephrolithiasis (51595952) Nephrolithiasis (N20.0) Active confirmed Problem Acquired trigger finger (8467683) Trigger middle finger of right hand (M65.331) Active confirmed Problem Adenocarcinoma of prostate (496754443) Adenocarcinoma of prostate (C61) Active confirmed Problem Bladder calculus (46668262) Bladder calculus (N21.0) Active confirmed Problem History of malignant neoplasm of prostate (307408188) History of prostate cancer (Z85.46) Active confirmed Problem Urge incontinence of urine (77935364) Urgency incontinence (N39.41) Active confirmed Problem Acquired trigger finger (9529028) Trigger ring finger of left hand (M65.342) Active confirmed Problem Ureteral stone (49535746) Ureteral stone (N20.1) Active confirmed Problem Overactive urinary bladder (disorder) (235882931) OAB (overactive bladder) (N32.81) Active confirmed Problem Localized, primary osteoarthritis of the hand (831352632) Arthritis of carpometacarpal (CMC) joint of right thumb (M18.11) Active confirmed Problem Localized, primary osteoarthritis of the hand (432132874) Arthritis of carpometacarpal (CMC) joint of left thumb (M18.12) Active confirmed Problem Chronic primary bladder pain syndrome (disorder) (62444947814148) 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 confirmed Vital Signs Height-cm 182.88 cm 08/02/2024 Weight-kg 95.26 kg 08/02/2024 Height 72 in 08/02/2024 Weight 210 lbs 08/02/2024 BMI 28.48 kg/m2 08/02/2024 Encounters Encounter Location Date Provider Diagnosis [facility] [address] [place] [address] [id number] 04/26/2024 LANG FISCHER Personal history of malignant neoplasm of prostate Z85.46 and Nephrolithiasis N20.0 [facility] [address] [place] [address] [id number] 04/26/2024 LANG FISCHER History of prostate cancer Z85.46 [facility] [address] [place] [address] [id number] 04/26/2024 LANG MINDRUP Nephrolithiasis N20. 0 [facility] [address] [place] [address], [place] [id number] 06/15/2024 LANG MINDRUP [facility] [address] [place] [address], [place] [id number] 07/17/2024 JURGEN FLORES Kidney stone N20.0 [facility] [address] [place] [address], [place] [id number] 07/18/2024 JURGEN FLORES Kidney stone N20.0 a nd Ureteral stone N20.1 [facility] [address] [place] [address], [place] [id number] 07/18/2024 JURGEN FLORES Kidney stone N20.0 [facility] [address] [place] [address], [place] [id number] 07/18/2024 JURGEN FLORES Kidney stone N20.0 [facility] [address] [place] [address], [place] [id number] 07/18/2024 JURGEN FLORES Kidney stone N20.0 [facility] [id number] [place] [address], [place] [id number] 07/20/2024 JURGEN FLORES [facility] [address] [place] [address], [place] [id number] 07/19/2024 JURGEN FLORES [facility] [address] [place] [address], [place] [id number] 07/20/2024 JURGEN FLORES [facility] [address] [place] [address], [place] [id number] 07/27/2024 JURGEN FLORES [facility] [address] [place] [address], [place] [id number] 08/02/2024 LANG MINDRUP Kidney stone N20.0 a nd Ureteral stone N20.1 [facility] [address] [place] [address], [place] [id number] 08/02/2024 LANG MINDRUP Nephrolithiasis N20. 0 Assessments Encounter Date Diagnosis (ICD Code) Assessment Notes Treatment Notes Treatment Clinical Notes Section Notes 04/26/2024 History of prostate cancer (ICD-10 - Z85.46) 04/26/2024 Nephrolithiasis (ICD-10 - N20.0) 04/26/2024 Personal history of malignant neoplasm of prostate (ICD-10 - Z85.46) Benign Prostatic Hyperplasia (BPH) Patient reports persistent weak urinary stream and incomplete bladder emptying, with nocturia 2 times per night. He is currently on tamsulosin and finasteride for BPH management. The patient discontinued oxybutynin due to lack of efficacy. Despite ongoing symptoms, the patient expresses satisfaction with current management and declines further intervention at this time. - Continue tamsulosin and finasteride - Annual follow-up to reassess symptoms and treatment efficacy - Informed patient about potential procedural options (Urolift, TURP) if symptoms worsen or become bothersome Nephrolithiasis X-ray (KUB) reveals stable left renal calculi, unchanged in size and number compared to previous year's imaging. Patient reports no associated symptoms. - Continue watchful waiting approach - Annual KUB to monitor stone status - Educated patient on alternative treatment options (shockwave lithotripsy, ureteroscopy with laser lithotripsy) if stones become symptomatic History of Prostate Cancer Patient diagnosed with prostate cancer [place] [address] Bowers. Current PSA level is 0.05, indicating excellent disease control. - Continue current management - Annual PSA testing for ongoing monitoring Phimosis Patient was previously prescribed topical cream for tight foreskin approximately one year ago. No current complaints or issues reported regarding this condition. - No active intervention required at this time - Monitor for recurrence of symptoms at future visits 04/26/2024 Nephrolithiasis (ICD-10 - N20.0) Benign Prostatic Hyperplasia (BPH) Patient reports persistent weak urinary stream and incomplete bladder emptying, with nocturia 2 times per night. He is currently on tamsulosin and finasteride for BPH management. The patient discontinued oxybutynin due to lack of efficacy. Despite ongoing symptoms, the patient expresses satisfaction with current management and declines further intervention at this time. - Continue tamsulosin and finasteride - Annual follow-up to reassess symptoms and treatment efficacy - Informed patient about potential procedural options (Urolift, TURP) if symptoms worsen or become bothersome Nephrolithiasis X-ray (KUB) reveals stable left renal calculi, unchanged in size and number compared to previous year's imaging. Patient reports no associated symptoms. - Continue watchful waiting approach - Annual KUB to monitor stone status - Educated patient on alternative treatment options (shockwave lithotripsy, ureteroscopy with laser lithotripsy) if stones become symptomatic History of Prostate Cancer Patient diagnosed with prostate cancer [place] [address] Bowers. Current PSA level is 0.05, indicating excellent disease control. - Continue current management - Annual PSA testing for ongoing monitoring Phimosis Patient was previously prescribed topical cream for tight foreskin approximately one year ago. No current complaints or issues reported regarding this condition. - No active intervention required at this time - Monitor for recurrence of symptoms at future visits 07/17/2024 Kidney stone (ICD-10 - N20.0) 07/18/2024 Kidney stone (ICD-10 - N20.0) 07/18/2024 Kidney stone (ICD-10 - N20.0) Medical decision making: History of nephrolithiasis. Recent presentation to the emergency room with left flank pain and a 5 mm left ureteral stone. CT scan images have been reviewed personally. He continues to have pain requiring morphine. His KUB today does not definitively identify a stone. Options for management were discussed and decision has been made to proceed with primary ureteroscopic stone extraction. Risks, benefits, logistics were explained. Expected operative time, the outpatient nature of the procedure and the recovery time were reviewed. He is anxious to proceed. We will begin making arrangements for this in the next several days. 07/18/2024 Ureteral stone (ICD-10 - N20.1) Medical decision making: History of nephrolithiasis. Recent presentation to the emergency room with left flank pain and a 5 mm left ureteral stone. CT scan images have been reviewed personally. He continues to have pain requiring morphine. His KUB today does not definitively identify a stone. Options for management were discussed and decision has been made to proceed with primary ureteroscopic stone extraction. Risks, benefits, logistics were explained. Expected operative time, the outpatient nature of the procedure and the recovery time were reviewed. He is anxious to proceed. We will begin making arrangements for this in the next several days. 07/18/2024 Kidney stone (ICD-10 - N20.0) 07/18/2024 Kidney stone (ICD-10 - N20.0) 08/02/2024 Nephrolithiasis (ICD-10 - N20.0) 08/02/2024 Kidney stone (ICD-10 - N20.0) He is feeling well now, we will be conservative, plan CT if pain returns. 08/02/2024 Ureteral stone (ICD-10 - N20.1) He is feeling well now, we will be conservative, plan CT if pain returns. 07/18/2024 Other Dx: left ureteral stone Procedure: left URSX with laser Time: 45 min Anesthesia: gen OP/OPEX/IP: OP Performing MD(s): SUSSY H&P: Update from ER, saw PCP in last 3 weeks Antibiotics: Ancef 2 grams Anticoagulat ion: NA DVT Prophylaxis: routine Urgency: tomorrw at o700 or Tuesday at 900 Special equipment: (e.g. robot type, Monopolar/Bi polar, other needs) laser Blood Products: NA Follow Up visit: TBD Other: Medical decision making: History of nephrolithiasis. Recent presentation to the emergency room with left flank pain and a 5 mm left ureteral stone. CT scan images have been reviewed personally. He continues to have pain requiring morphine. His KUB today does not definitively identify a stone. Options for management were discussed and decision has been made to proceed with primary ureteroscopic stone extraction. Risks, benefits, logistics were explained. Expected operative time, the outpatient nature of the procedure and the recovery time were reviewed. He is anxious to proceed. We will begin making arrangements for this in the next several days. 07/20/2024 Cystoscopy, left ureteroscopy with holmium laser lithotripsy and stent placement Patient will remove the stent on his own. Plan Of Treatment Future Test Test Name Order Date PSA 04/26/2025 Next Appt Details Provider Name:ALNG FISCHER , 05/01/2025 09:50:00 AM, [address] [place] [address], [phone], Provider Name:LANG ROBERTSJose , 05/01/2025 10:00:00 AM, [address] [place] [address], [id number], Provider Name:LANG FISCHER , 05/01/2025 10:30:00 AM, [address] [place] [address], [id number], Insurance Providers Payer Name Payer Address Payer Phone Subscriber Number Group Number Insured Name Patient Relationship to Insured Coverage Start Date Coverage End Date Medicare Part B J5 WPS [address] [place] [address] [id number] Quan Simmons Self - patient is the insured 8 [employer] Medicare Blue Supplement [address] [place], [place] [id number] [id number] Quan Simmons Self - patient is the insured Medications Administered Medication Instructions Date of Administration Dosage Notes IMG Omnipaque 300 100ml 10/13/2018 100 Ortho Depo40 Tendon Sheath Inj 11/24/2020 40 mg Ortho Fzlknap35 Tendon Shealth 09/01/2023 10 mg Ortho Lidocaine 1% 11/24/2020 0.5 mL Ortho Lidocaine 1% 09/01/2023 0.5 mL PS Kenalog 40 7 or less lesions/scar 01/26/2022 40 mg Medical (General) History Medical History History ICD Code Arthritis Prostate Cancer- radiation 2016 Hypertension Thyroid Disorder Kidney Stones Balanitis Covid 02/2020 Gross hematuria- work up 2018 bladder infections kidney stone hx back spasms nerve damage legs Surgical History Surgery Date(Month/Year) cholecystectomy 1985 kidney stone removed 07/20/24 Left ring finger trigger release- Dr. Marysol elliott 01/20/24 Left middle finger trigger release- Dr. Mckeon 11/13/21 Mitral valve repair 10/16/2020 L4/L5 laminectomy 2017 cervical fusion pilonidial cyst urinary stones x4 throat 2017 prostate/ bleeding 2016 colon resection 2010 Bilateral cataract-lens implants neck surgery/anterior cervicle fusion 06 Hospitalization History Reason Date(Month/Year) fluid drained off twice heart STL/UP bladder infection x2
[2025-02-21 12:17] LABS: Hematocrit* 39.8 % (37.0-53.0); Hemoglobin* 13.3 gm/dL (13.5-17.5); Immature Granulocytes Abs Auto 0.11 K/uL (0.00-0.30); Immature Granulocytes Pct Auto 1.9 %; Mean Corpuscular HGB Conc 33 gm/dL (32-36); Mean Corpuscular Hemoglobin 32 pg (26-34); Mean Corpuscular Volume 94 fL (80-100); RDW Coefficient of Variation % 14.3 % (11.5-15.5); Red Blood Count* 4.22 m/uL (4.30-5.90); White Blood Count* 5.72 K/uL (4.50-11.00)
[2025-02-21 12:24] LABS: Lymphocytes Absolute Auto 0.60 K/uL (0.90-2.90)
[2025-02-21 12:25] LABS: Slide Review Reflex No
[2025-02-21 12:43] LABS: Chloride* 106 mmol/L (96-114); Potassium* 4.3 mmol/L (3.6-5.1); Sodium* 140 mmol/L (135-149)
[2025-02-21 12:46] LABS: Blood Urea Nitrogen* 13 mg/dL (7-30); Creatinine* 1.1 mg/dL (0.5-1.5); Est. Creatinine Clearance* 55.14; Estimated Glomerular Filt Rate 67 ml/min
[2025-02-21 12:47] LABS: Anion Gap 5 mEq/L (7-15); Calcium* 8.6 mg/dL (8.4-10.6); Carbon Dioxide* 29 mmol/L (20-32); Glucose* 98 mg/dL (60-115)
[2025-02-21 12:50] LABS: PCR FLU A Negative PCR FLU A (Negative); PCR FLU B Negative PCR FLU B (Negative); PCR RSV Negative PCR RSV (Negative); SARS PCR* Negative SARS-CoV-2 (Negative)
[2025-02-21 12:53] LABS: D Dimer Quantitative* 0.35 ug/ml (0.00-0.50)
--- NOTE | 2025-02-21 13:03 | CRLHL7_ITS ---
For Patients: As a result of the Century Cures Act, medical imaging exams and procedure reports are released immediately into your electronic medical record. You may view this report before your referring provider. If you have questions, please contact your health care provider. INDICATION: Short of breath. COMPARISON: None. TECHNIQUE: CT chest without contrast. Multiplanar axial, coronal, and sagittal reformats are included. MIP images to improve detection of pulmonary nodules are included. Intravenous contrast: None FINDINGS: Airway: Normal tracheobronchial tree. Lungs: There are focal reticular opacities, primarily in the anterior aspect of the right upper lobe and right middle lobe. Minimal anterior reticulation/distortion in the lingula. No nodules or masses. No consolidations. Pleura: Trace left pleural effusion. Very small right pleural effusion. The right effusion only measures up to 8 millimeters in thickness. The effusions are layering posteriorly and dependently. No pneumothorax. Lymph nodes: No thoracic adenopathy. Mediastinum: No pneumomediastinum. No hematoma. Heart and great vessels: No pericardial effusion. Normal cardiac chamber size. Very heavy calcified coronary artery and moderate other atherosclerotic plaques. The ascending aorta measures up to 4.5 centimeters in diameter. No periaortic hematoma or stranding. Normal caliber main pulmonary artery. Chest wall: There is some postoperative change at the right lateral 3rd 4th intercostal space with focal loss of the intercostal muscles and surgical clips. There is some scarring in the overlying soft tissues. Upper abdomen: Cholecystectomy clips. Right upper pole renal cyst. Atherosclerosis. Bones: Healed median sternotomy. Lower cervical ACDF. No acute or healing fractures. No focal bone lesions. IMPRESSION: 1. There are some reticular opacities and distortion that are primarily in the anterior/anterolateral periphery of right upper lobe and right middle lobe. There is some overlying irregularity and distortion in the chest wall. Favor that this is related to a prior surgical insult or trauma. 2. There are trace bilateral pleural effusions of unclear etiology. 3. There has an ascending aortic aneurysm that measures up to 4.5 cm. Please note that all CT scans at this facility use dose modulation, iterative reconstruction, and/or weight-based dosing when appropriate to reduce radiation dose to as low as reasonably achievable. Dictated by Ce Lambert MD @ 02/21/2025 1:39:40 PM (Electronically Signed)
== END 2025-02-21 14:24 | disposition home or self-care (01) ==
PROVIDERS: Emergency Provider Student in an Organized Health Care Education/Training Program
DX: J20.9 Acute bronchitis, unspecified (principal)
CPT/HCPCS: 36415; 71250; 80048; 83735; 84484; 85025; 85379; 87631; 93005; 99284